=== PATIENT | male | born 1965 | race Caucasian/White ===

== ENCOUNTER 2017-08-12 09:19 | Day surgery (SDC) | payer BC ==
[~2017-08-12] VITALS: Ht 188 cm; Wt 90.7 kg
--- OUTSIDE RECORDS SUMMARY | 2017-08-12 09:23 | XMS REPORT | Encounter Summary ---
Author Author [facility] Organization [facility] Address Unknown Phone Unavailable Care Team Providers Care Lead Cytogenetic Technologist Name Role Phone PCP Unavailable Encounter Details Date Type Department Care Team Description 07/21/2017 Hospital [facility] Encounter Hospital Radiology [address] [place] [address] Social History Tobacco Use Types Packs/Day Years Used Date Never Assessed Sex Assigned at Date Recorded Not on file as of this encounter Plan of Treatment Not on fileas of this encounter Results * NM PET/CT EXTERNAL IMAGING (07/21/2017) Narrative This order has been auto finalized and does not contain a result. in this encounter Visit Diagnoses Diagnosis Diagnosis unknown Other unknown and unspecified cause of morbidity or mortality in this encounter
--- OUTSIDE RECORDS SUMMARY | 2017-08-12 09:23 | XMS REPORT | Encounter Summary ---
Author Author [facility] Organization [facility] Address Unknown Phone Unavailable Care Team Providers Care Investment Accounting Clerk Name Role Phone PCP Unavailable Reason for Visit * Reason Comments Navigation Assessment Encounter Details Date Type Department Care Team Description 07/17/2017 Telephone [facility] Jorge Alberto Levy MD Navigation Assessment Physicians - ENT [address] [place] [address] OFFICE BLDG [phone] [place] [address] Social History Tobacco Use Types Packs/Day Years Used Date Never Assessed Sex Assigned at Date Recorded Not on file as of this encounter Plan of Treatment Not on fileas of this encounter Visit Diagnoses Not on filein this encounter
--- OUTSIDE RECORDS SUMMARY | 2017-08-12 09:23 | XMS REPORT | Encounter Summary ---
Author Author [facility] Organization [facility] Address Unknown Phone Unavailable Care Team Providers Care Obiee Architect Name Role Phone PCP Unavailable Encounter Details Date Type Department Care Team Description 07/23/2017 Ancillary Rad Outpatient, Radiologist Diagnosis unknown Orders [address] [place], [place] [id number] Social History Tobacco Use Types Packs/Day Years Used Date Never Assessed Sex Assigned at Date Recorded Not on file as of this encounter Plan of Treatment Not on fileas of this encounter Results * NM PET/CT EXTERNAL IMAGING (07/21/2017) Narrative This order has been auto finalized and does not contain a result. * US MISC EXTERNAL IMAGING (07/10/2017 12:15 AM) Narrative This order has been auto finalized and does not contain a result. * CT NECK EXTERNAL IMAGING (07/10/2017) Narrative This order has been auto finalized and does not contain a result. in this encounter Visit Diagnoses Diagnosis Diagnosis unknown Other unknown and unspecified cause of morbidity or mortality in this encounter
--- OUTSIDE RECORDS SUMMARY | 2017-08-12 09:23 | XMS REPORT | Encounter Summary ---
Author Author [facility] Organization [facility] Address Unknown Phone Unavailable Care Team Providers Care Field Pipelines Supervisor Name Role Phone PCP Unavailable Reason for Visit * Reason Comments Provider Discussion About Patient * Consult, Test & Treat (Routine) Status Reason Specialty Diagnoses / Referred By Referred To Procedures Contact Contact Authorized Otolaryngology Diagnoses Jorge Alberto Levy NEW, Wayne BUTLER MD CWA [address] rocedures [place], [place] NEW PATIENT [address] Encounter Details Date Type Department Care Team Description 07/24/2017 Office Visit [facility] Jorge Alberto Levy MD Oropharynx cancer (HCC) Physicians - ENT [address] F[address] [place] [address] OFFICE BLDG [phone] [place] [address] Social History Tobacco Use Types Packs/Day Years Used Date Never Smoker Smokeless Tobacco: Never Used Alcohol Use Drinks/Week oz/Week Comments Yes Sex Assigned at Date Recorded Not on file as of this encounter Last Filed Vital Signs Vital Sign Reading Time Taken Blood Pressure 109/71 07/24/2017 8:55 AM CDT Pulse 76 07/24/2017 8:55 AM CDT Temperature - - Respiratory Rate - - Oxygen Saturation - - Inhaled Oxygen - - Concentration Weight 88.7 kg (195 lb 9.6 oz) 07/24/2017 8:55 AM CDT Height 188 cm (6' 2") 07/24/2017 8:55 AM CDT Body Mass Index 25.11 07/24/2017 8:55 AM CDT in this encounter Progress Notes * Jorge Alberto Levy MD - 07/24/2017 9:00 AM CDT Formatting of this note may be different from the original. Chief Complaint Patient presents with Provider Discussion About Patient History of Present Illness: Roman Starr is a 51 y.o. year old male evaluated on 07/24/2017, in the Otolaryngology-Head and Neck Surgery Clinic at the [facility]. The patient was referred by Dr. 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 describes felling a left neck lump few months ago. He went to his PCP which ordered some imaging to him. 06/17/17 US: IMPRESSION: Multiple lymph nodes are identified in the soft tissues of the neck. One of these corresponds with the palpable lump and it is located between the carotid bulb, internal carotid, external carotid arteries, and the internal jugular vein. Several of the lymph nodes demonstrated loss of normal architecture. The possibility of a significant process such as metastatic disease or lymphoma may be consdidered in the differential diagnosis. 07/10/17 CT Neck and Chest: IMPRESSION: Vtuw-ie-jhizgbor zmrp-iqcpxci-lhva- right ciervical mainly anterior chain lymphadenopathy. These nodes are in a precarious poaition, and would make a biopsy extremely challenging. 07/10/17 Surgical path: Left neck node: Metastatic squamous cell carcinoma, p16 POS 07/21/17 PET: IMPRESSION: Intensely FDG avid pharyngeal mass lesion involving bilateral tonsillar pillar extending to the vallecula, left-greater- than-right, with soft tissue prominence. Significant bilateral neck divina metastasis, fkmy-cfzhakb-dgox-right, with abnormal radiotracer uptake. Today he denies any pain or difficulty in swallowing. He denies any irritation in his oral cavity or any bleeding. He is a lifetime non smoker. He has a remote history of tonsillectomy when he was 2 years old. Past Medical/Surgical History He has no relevant medical history Past surgical history is noncontributory. Past Family/Social History Family history is noncontributory. He reports that he has never smoked. He has never used smokeless tobacco. He reports that he drinks alcohol. He reports that he does not use illicit drugs. Medications/Allergies/Immunizations His current medication(s) include: No current outpatient prescriptions on file. No current facility-administered medications for this visit. Allergies: Review of patient's allergies indicates no known allergies. Review of Systems Constitutional: Negative for fever, weight loss and weight gain. Skin: Negative for rash, itchiness, dryness HENT: Negative for ear pain, sore throat and hoarseness. Negative for difficulty swallowing. Cardiovascular: Negative for chest pain and dyspnea on exertion (Can climb up 2 floors). Respiratory: Is not experiencing shortness of breath. Gastrointestinal: Negative for nausea and vomiting. Neurological: Negative for headaches. Lymph/Heme: Negative for lymphadenopathy or easy bruising Musculoskeletal: Negative for joint or muscle pain Psychiatric: The patient is not nervous/anxious. All other systems are negative except for that listed in the HPI. PHYSICAL EXAM: Vital Signs: BP 109/71 (BP Source: Arm, Right, Patient Position: Sitting) | Pulse 76 | Ht 188 cm (74") | Wt 88.7 kg (195 lb 9.6 oz) | BMI 25.11 kg/m2 General: Well-developed, well-nourished Communication and Voice: Clear pitch and clarity Hearing: Hearing adequate for verbal communication bilaterally Inspection: Normocephalic and atraumatic without mass or lesion Palpation: Facial skeleton intact without bony stepoffs Parotid Glands: No mass or tenderness Facial Strength: Facial motility symmetric and full bilaterally Pinna: External ear intact and fully developed External canal: Canal is patent with intact skin Tympanic Membrane: Clear and mobile External nose: No scar or anatomic deformity Internal Nose: Septum intact and midline. No edema, polyp, or rhinorrhea. TMJ: No pain to palpation with full mobility Oral cavity, Lips, Teeth, and Gums: Mucosa and teeth intact and viable, No lesions, masses or ulcers Oropharynx: NO masses seen visually but on palpation there was irregularities at the tonsillar fossae and a mass was felt at the left inferior tonsil and tongue base. Nasopharynx: No mass or lesion with intact mucosa Hypopharynx: No masses or ulcerations, normal mucosa without pooling of secretions Larynx: Normal supraglottic and glottic structures without masses or ulcerations, normal vocal fold mobility Neck, bilateral cervical lymphadenopathy at level 2 most prominent aon the left side. Largest is about 2 cm in diameter. Thyroid: No mass or nodularity Eyes: No nystagmus with equal extraocular motion bilaterally Neuro/Psych/Balance: Patient oriented and appropriate in interaction; Appropriate mood and affect; Gait is intact with no imbalance; Cranial nerves I -XII are intact Respiratory effort: Equal inspiration and expiration without stridor Peripheral Vascular: Warm extremities with equal pulses Procedure: Flexible fiberoptic nasopharyngoscopy/laryngoscopy Indications: Need for detailed exam, hyperactive gag reflex, inadequate mirror visualization. Surgeon: Jorge Alberto Levy MD Procedure note/findings: After informed discussion of the risks, benefits, and alternatives after indications as noted above, a fiberoptic nasopharyngoscopy and laryngoscopy was recommended for above indications, and the patient consented to this. Nasal cavities were topically anesthetized and decongested with 4% lidocaine and Afrin solutions after which a flexible scope was easily advanced without difficulty into the left and right nasal cavities as well as into the nasopharynx. Nasal cavities were intact without gross mass or lesion. Nasopharynx, similarly, revealed no mass lesion or granularity. There was no ulceration. There was no gross asymmetry. Fossa of Rosenmueller was intact bilaterally. The eustachian tube orifices were intact bilaterally and patent. There was a mass seen at the tongue base L>R. Larynx and hypopharynx were examined. Larynx was intact with normal true vocal cord mobility bilaterally. No discrete masses or lesions in any location. Hypopharynx was clear without asymmetry. Airway was patent. The scope was then withdrawn and removed. He tolerated this well. IMPRESSION: My impression is that Mr. Starr has an oropharyngeal carcinoma. which I would tentatively stage as a [id number] P16 positive lesion based on on its size at tongue base and bilateral cervical lymph nodes. We discussed thoroughly his treatment options which include concomitant chemotherapy and radiotherapy which I think would give him the best oncological and functional outcomes versus surgery with robotic assistance. Mr. Starr seems to be in good understanding of his options and wants to proceed to have concomitant chemotherapy and radiotherapy. PLAN: After review of the various options including the risks, benefits and alternatives, Mr. Starr has opted to proceed with concomitant chemotherapy and radiotherapy.as part of his overall management which I believe is reasonable for his condition. Attending Physician Note I independently interviewed, examined and formulated the medical decision making for Mr. Starr. Details of my interview, examination findings, and medical decision-making confirmed the findings in the resident physician's documentation. I have personally amended the resident physician's documentation in bold where appropriate. We discussed treatment options including primary radiation therapy with or without chemotherapy and possible surgical salvage, primary surgery with post- operative adjuvant radiation with or without chemotherapy, and no treatment/ supportive care. I did not recommend no treatment because of the high likelihood of disease progression over time leading to significant morbidity. I recommended primary chemoradiation over surgery due to the more favorable cure versus toxicity profile in this circumstance. We did discuss that no treatment modality could offer a guarantee of cure and that all treatments have varying degrees of toxicity. TORS would leave large defect and functional impairment and would likely not prevent need for chemoradiation. Staff name: Jorge Alberto Levy MD Date: 07/24/2017 in this encounter Plan of Treatment Not on fileas of this encounter Visit Diagnoses Diagnosis Oropharynx cancer (HCC) Malignant neoplasm of oropharynx, unspecified site in this encounter
--- OUTSIDE RECORDS SUMMARY | 2017-08-12 09:23 | XMS REPORT | Encounter Summary ---
Author Author [facility] Organization [facility] Address Unknown Phone Unavailable Care Team Providers Care Foreclosure Home Inspector Name Role Phone PCP Unavailable Reason for Visit * Reason Comments Navigation Follow Up Encounter Details Date Type Department Care Team Description 08/11/2017 Telephone [facility] Claudio Alaniz MD Navigation Follow Up Physicians - ENT [address] [facility] [address] F[address] [facility] [place] [address] OFFICE BLDG [phone] [place] [address] Social History Tobacco Use Types Packs/Day Years Used Date Never Smoker Smokeless Tobacco: Never Used Alcohol Use Drinks/Week oz/Week Comments Yes Sex Assigned at Date Recorded Not on file as of this encounter Plan of Treatment Not on fileas of this encounter Visit Diagnoses Not on filein this encounter
--- OUTSIDE RECORDS SUMMARY | 2017-08-12 09:23 | XMS REPORT | Clinical Summary ---
Author Author [facility] Organization [facility] Address Unknown Phone Unavailable Care Team Providers Care Machine Cementer And Folder Name Role Phone PCP Unavailable Source Comments Some departments are not documenting in the electronic medical record. If you do not see the information that you expected, contact Release of Information in the Health Information Management department at [phone] for further assistance in locating additional records.[facility] Allergies No Known Allergies Current Medications No known medications Active Problems Problem Noted Date Oropharynx cancer (HCC) 07/24/2017 Encounters Date Type Specialty Care Team Description 08/11/2017 Telephone Otolaryngology Claudio Alaniz MD Navigation Follow Up 08/07/2017 Telephone Otolaryngology Jorge Alberto Levy MD Navigation Follow Up 08/06/2017 Telephone Otolaryngology Jorge Alberto Levy MD Navigation Follow Up 07/24/2017 Office Visit Otolaryngology Jorge Alberto Levy MD Oropharynx cancer (HCC) 07/23/2017 Ancillary Radiology Outpatient, Radiologist Diagnosis unknown Orders 07/21/2017 Hospital Radiology Encounter 07/17/2017 Telephone Otolaryngology Jorge Alberto Levy MD Navigation Assessment 07/10/2017 Hospital Radiology Encounter 07/10/2017 Hospital Radiology Encounter from Last 3 Months Social History Tobacco Use Types Packs/Day Years Used Date Never Smoker Smokeless Tobacco: Never Used Alcohol Use Drinks/Week oz/Week Comments Yes Sex Assigned at Date Recorded Not on file Last Filed Vital Signs Vital Sign Reading [...] Mass Index 25.11 07/24/2017 8:55 AM CDT Plan of Treatment Health Maintenance Due Date Last Done Comments HEPATITIS C SCREENING 1963 PHYSICAL (COMPREHENSIVE) 1970 EXAM PERTUSSIS VACCINE 1974 TETANUS VACCINE 1980 COLORECTAL CANCER 2013 SCREENING INFLUENZA VACCINE 08/30/2017 Results * NM PET/CT EXTERNAL IMAGING (07/21/2017) Narrative This order has been auto finalized and does not contain a result. * US MISC EXTERNAL IMAGING (07/10/2017 12:15 AM) Narrative This order has been auto finalized and does not contain a result. * CT NECK EXTERNAL IMAGING (07/10/2017) Narrative This order has been auto finalized and does not contain a result. from Last 3 Months
--- OUTSIDE RECORDS SUMMARY | 2017-08-12 09:23 | XMS REPORT | Encounter Summary ---
Author Author [facility] Organization [facility] Address Unknown Phone Unavailable Care Team Providers Care Corporate Administrative Assistant Name Role Phone PCP Unavailable Encounter Details Date Type Department Care Team Description 07/10/2017 Hospital [facility] Encounter Hospital Radiology [address] [facility] [address] [place] [address] Social History Tobacco Use Types Packs/Day Years Used Date Never Assessed Sex Assigned at Date Recorded Not on file as of this encounter Plan of Treatment Not on fileas of this encounter Results * CT NECK EXTERNAL IMAGING (07/10/2017) Narrative This order has been auto finalized and does not contain a result. in this encounter Visit Diagnoses Diagnosis Diagnosis unknown Other unknown and unspecified cause of morbidity or mortality in this encounter
--- OUTSIDE RECORDS SUMMARY | 2017-08-12 09:23 | XMS REPORT | Encounter Summary ---
Author Author [facility] Organization [facility] Address Unknown Phone Unavailable Care Team Providers Care Geomatics Professor Name Role Phone PCP Unavailable Encounter Details Date Type Department Care Team Description 07/10/2017 Hospital [facility] Encounter Hospital Radiology [address] [place] [address] Social History Tobacco Use Types Packs/Day Years Used Date Never Assessed Sex Assigned at Date Recorded Not on file as of this encounter Plan of Treatment Not on fileas of this encounter Results * [facility] EXTERNAL IMAGING (07/10/2017 12:15 AM) Narrative This order has been auto finalized and does not contain a result. in this encounter Visit Diagnoses Diagnosis Diagnosis unknown Other unknown and unspecified cause of morbidity or mortality in this encounter
--- OUTSIDE RECORDS SUMMARY | 2017-08-12 09:23 | XMS REPORT | Encounter Summary ---
Author Author [facility] Organization [facility] Address Unknown Phone Unavailable Care Team Providers Care Replacer Name Role Phone PCP Unavailable Reason for Visit * Reason Comments Navigation Follow Up Encounter Details Date Type Department Care Team Description 08/07/2017 Telephone [facility] Jorge Alberto Levy MD Navigation Follow Up Physicians - ENT [address] [facility] [facility] [place] [address] OFFICE BLDG [phone] [place] [address] Social History Tobacco Use Types Packs/Day Years Used Date Never Smoker Smokeless Tobacco: Never Used Alcohol Use Drinks/Week oz/Week Comments Yes Sex Assigned at Date Recorded Not on file as of this encounter Plan of Treatment Not on fileas of this encounter Visit Diagnoses Not on filein this encounter
--- OUTSIDE RECORDS SUMMARY | 2017-08-12 09:23 | XMS REPORT | Encounter Summary ---
Author Author [facility] Organization [facility] Address Unknown Phone Unavailable Care Team Providers Care Putty And Caulking Supervisor Name Role Phone PCP Unavailable Reason for Visit * Reason Comments Navigation Follow Up Encounter Details Date Type Department Care Team Description 08/06/2017 Telephone [facility] Jorge Alberto Levy MD Navigation Follow Up Physicians - ENT [address] [place] [address] OFFICE BLDG [phone] [place] [address] Social History Tobacco Use Types Packs/Day Years Used Date Never Smoker Smokeless Tobacco: Never Used Alcohol Use Drinks/Week oz/Week Comments Yes Sex Assigned at Date Recorded Not on file as of this encounter Plan of Treatment Not on fileas of this encounter Visit Diagnoses Not on filein this encounter
--- OUTSIDE RECORDS SUMMARY | 2017-08-12 09:23 | XMS REPORT ---
Author ANAND Bell [facility] Address [address] [facility] [address] [place], [place] [id number] Care Team Providers Care Transit Proof Machine Operator Name Role Phone ANAND HAILE PCP Unavailable ANAND HAILE PreferredProvider Unavailable Allergies and Adverse Reactions Name Reaction Notes NO KNOWN DRUG ALLERGIES Plan of Treatment Not available. Medications Active Name Start Date Estimated Completion Date SIG Comments acyclovir 800 mg oral tablet 12/02/2016 take 1 tablet by oral route 3 times a day [place]-Smoothe/FS Scalp Oil 0.01 % scalp oil 05/27/2017 05/22/2018 Apply 1 a small amount (0.01%) by topical route twice a day as directed for 30 days Celexa 20 mg oral tablet 05/27/2017 take 1 tablet (20 mg) by oral route once daily Nizoral 2 % topical shampoo 05/27/2017 12/09/2017 apply shampoo by topical route twice weekly for 4 weeks with at least 3 days between each shampooing cyclobenzaprine 10 mg oral tablet 05/27/2017 take 1 tablet (10 mg) by oral route 2 times per day Cialis 5 mg oral tablet 05/27/2017 take 1 tablet (5 mg) by oral route once daily at approximately the same time each day [place] 10-325 mg oral tablet 05/27/2017 take 1 tablet by oral route every 6 hours as needed for pain Name Start Date Expiration Date SIG Comments Medrol (Ray) 4 mg oral tablets,dose pack 08/16/2012 08/16/2012 take as directed Zithromax Z-Ray 250 mg oral tablet 08/16/2012 08/21/2012 take 2 tablets (500 mg) by oral route once daily for 1 day then 1 tablet (250 mg) by oral route once daily for 4 days cyclobenzaprine 10 mg oral tablet 08/26/2012 08/26/2012 TAKE 1 TABLET BY MOUTH THREE TIMES DAILY NEEDED FOR SPASM acyclovir 800 mg oral tablet 05/16/2013 06/15/2013 take 1 tablet by oral route 3 times a day Celexa 20 mg oral tablet 02/07/2014 05/08/2014 take 1 tablet (20 mg) by oral route once daily for 30 days Zithromax Z-Ray 250 mg oral tablet 11/22/2014 11/27/2014 take 2 tablets ( 500 mg) by oral route once daily for 1 day then 1 tablet (250 mg) by oral route once daily for 4 days Suphedrine 30 mg oral tablet 01/04/2016 01/04/2016 take 2 tablets by oral route every 4 hours prednisone 20 mg oral tablet 12/02/2016 12/10/2016 4x2 days 3x2 days 2x2 days 1x2 days cephalexin 500 mg oral capsule 12/29/2016 01/08/2017 take 1 capsule (500 mg) by oral route 4 times per day for 10 days Discontinued Name Start Date Discontinued Date SIG Comments Flexeril 10 mg oral tablet 09/17/2010 09/12/2015 take 1 tablet (10 mg) by oral route 3 times per day Vicodin 5-500 mg oral tablet 09/17/2010 09/12/2015 take 1 tablet by oral route every 6 hours as needed for pain Cortisporin-TC 3.3-3-10-0.5 mg/mL otic drops,suspension 08/24/2012 06/14/2017 instill in affected ear 4 drops by otic route 4 times a day Medrol (Ray) 4 mg oral tablets,dose pack 11/22/2014 09/12/2015 take as directed promethazine-codeine 6.25-10 mg/5 mL oral syrup 11/22/2014 09/12/2015 take 5 milliliters by oral route every 4 hours as needed, not to exceed 30 mL in 24 hours fluticasone 50 mcg/actuation nasal spray,suspension 01/04/2016 06/14/2017 inhale 1 spray (50 mcg) in each nostril by intranasal route 2 times per day Bactrim DS 800-160 mg oral tablet 12/02/2016 06/14/2017 take 1 tablet by oral route 2 times a day Problem List Description Status Onset Back Pain Active Herpes Simplex Of Lip, History Active Insomnia Active 02/08/2014 Scalp psoriasis Active 06/14/2017 Medication management Active 06/14/2017 Celiac disease Active 06/14/2017 Back spasm Active 06/14/2017 Vital Signs Date Time BP-Sys(mm[Hg] BP-Kiah(mm[Hg]) HR(bpm) RR(rpm) Temp WT HT HC BMI BSA BMI Percentile O2 Sat(%) 05/27/2017 11:09:00 AM 132 mmHg 88 mmHg 70 bpm 16 rpm 98 F 199.062 lbs 74 in 25.56 kg/m2 2.17 m2 98 % 12/29/2016 2:49:00 PM 118 mmHg 80 mmHg 88 bpm 16 rpm 97.9 F 209 lbs 74 in 26.8337 kg/m 2.2248 m 96 % 12/02/2016 9:03:00 AM 120 mmHg 84 mmHg 97 bpm 16 rpm 98 F 205 lbs 74 in 26.32 kg/m2 2.20 m2 97 % 01/04/2016 10:21:00 AM 120 mmHg 70 mmHg 68 bpm 18 rpm 98.2 F 202 lbs 74 in 25.935 kg/m 2.1872 m 98 % 11/07/2015 2:39:00 PM 110 mmHg 60 mmHg 94 bpm 18 rpm 98.4 F 206 lbs 74 in 26.45 kg/m2 2.21 m2 98 % 09/03/2015 10:29:00 AM 118 mmHg 70 mmHg 86 bpm 16 rpm 98 F 196 lbs 74 in 25.1647 kg/m 2.1545 m 99 % 02/07/2014 11:39:00 AM 122 mmHg 62 mmHg 94 bpm 16 rpm 98.3 F 203 lbs 73 in 26.78 kg/m2 2.18 m2 98 % 07/28/2013 7:53:00 AM 112 mmHg 72 mmHg 72 bpm 20 rpm 98 F 208 lbs 73 in 27.442 kg/m 2.2044 m 99 % 11/11/2012 8:27:00 AM 110 mmHg 60 mmHg 84 bpm 18 rpm 97.1 F 204 lbs 72 in 27.67 kg/m2 2.17 m2 98 % 08/24/2012 1:29:00 PM 118 mmHg 60 mmHg 114 bpm 20 rpm 97.8 F 200 lbs 74 in 25.6782 kg/m 2.1764 m 99 % Social History Name Description Comments Alcohol Use Tobacco Never smoker History of Procedures Date Ordered Description Order Status 09/03/2015 12:00 AM Decadron, Per 1 Mg [facility]# [address]-16 Reviewed 09/03/2015 12:00 AM Depo-Medrol, Per 80 Mg NDC#6209-8868-56 Reviewed 11/07/2015 12:00 AM Decadron, Per 1 Mg N[facility]# [address]-63 Reviewed 11/07/2015 12:00 AM Depo-Medrol, Per 80 Mg NDC#1142-2980-19 Reviewed 11/07/2015 12:00 AM Toradol 60 Mg ND#5306-4381-52 Reviewed 01/04/2016 12:00 AM Decadron, Per 1 Mg NDC# [address]-01 Reviewed 08/26/2012 12:00 AM ROUTINE VENIPUNCTURE Reviewed 08/26/2012 12:00 AM COMPLETE CBC W/AUTO DIFF WBC Reviewed 08/26/2012 12:00 AM COMPREHEN METABOLIC PANEL Reviewed 08/26/2012 12:00 AM LIPID PANEL Reviewed 08/26/2012 12:00 AM Prostate Cancer Screening Reviewed 08/26/2012 12:00 AM ASSAY THYROID STIM HORMONE Reviewed 11/11/2012 12:00 AM THER/PROPH/DIAG INJ SC/IM Reviewed 11/11/2012 12:00 AM Decadron, Per 1 Mg NDC# [address]-75 Reviewed 11/11/2012 12:00 AM Depo-Medrol, Per 80 Mg NDC#7429-2413-81 Reviewed 07/28/2013 12:00 AM THER/PROPH/DIAG INJ SC/IM Reviewed 07/28/2013 12:00 AM Decadron, Per 1 Mg NDC# [address]-01 Reviewed 07/28/2013 12:00 AM Depo-Medrol, Per 80 Mg NDC#0970-9032-14 Reviewed Results Summary Date and Description Results 08/26/2012 3:55 PM GLUCOSE 76.0 mg/dLSODIUM 140.0 mmol/LPOTASSIUM 3.80 mmol/ LCHLORIDE 105.0 mmol/LCO2 25.0 mmol/LBUN 17.0 mg/dLCREATININE 1.10 mg/dLSGOT/ AST 15.0 IU/LSGPT/ALT 19.0 IU/LALK PHOS 79.0 IU/LTOTAL PROTEIN 7.20 g/dLALBUMIN 4.10 g/dLTOTAL BILI 1.10 mg/dLCALCIUM 9.20 mg/dLAGE 46 GFR NonAA 71 GFR AA 86 eGFR 60 eGFR AA* 60 FREE T4 0.87 TSH 2.480 uIU/mLWBC 6.5 RBC 5.03 HGB 16.10 g/ dLHCT 45.50 %MCV 91.0 fLMCH 32.0 pgMCHC 35.40 g/dLRDW SD 42 RDW CV 13.0 %MPV 9.60 fLPLT 151 NRBC# 0.00 NRBC% 0.0 %NEUT 52.70 %%LYMP 34.50 %%MONO 10.10 %%EOS 2.20 %%BASO 0.50 %#NEUT 3.41 #LYMP 2.23 #MONO 0.65 #EOS 0.14 #BASO 0.03 MANUAL DIFF NOT IND TRIGLYCERIDES 82.0 mg/dLCHOLESTEROL 168.0 mg/dLHDL 61.0 mg/dLTOT CHOL/HDL 2.8 LDL (CALC) 91.0 mg/dLPSA TOTAL 1.260 ng/mL 02/09/2014 11:50 AM PSA TOTAL 0.960 ng/mLTESTOSTERONE 573.0 ng/dLT4 6.60 ug/dL History Of Immunizations Not available. History of Past Illness Name Date of Onset Comments Back Pain Herpes Simplex Of Lip, History Chest Pain, Atypical Celiac Disease Insomnia 02/08/2014 Scalp psoriasis 06/14/2017 Medication management 06/14/2017 Celiac disease 06/14/2017 Back spasm 06/14/2017 Otitis Externa, Acute - Right Aug 24 2012 1:30PM Weight Loss Aug 26 2012 12:30PM Fatigue Aug 26 2012 12:30PM Prostate screening Aug 26 2012 12:30PM Eustachian Tube Dysfunction Nov 11 2012 8:28AM Ear Pain Right Nov 11 2012 8:28AM Seasonal Allergies Jul 28 2013 3:45PM Depressive Disorder Feb 07 2014 11:40AM Insomnia Feb 07 2014 11:40AM Back Pain Feb 07 2014 11:40AM Celiac Disease Feb 07 2014 11:40AM Chest pain; other Feb 07 2014 11:40AM Eustachian Tube Dysfunction Sep 03 2015 10:29AM Seasonal Allergies Sep 03 2015 10:29AM Post-nasal drainage Sep 03 2015 10:29AM Ear pressure, right Sep 03 2015 10:29AM Bilateral low back pain without sciatica Nov 07 2015 2:39PM Severe Acute Muscle spasm of back Nov 07 2015 2:39PM Eustachian tube dysfunction, bilateral Jan 04 2016 10:21AM Moderate Acute Post-nasal drainage Jan 04 2016 10:21AM Upper respiratory tract infection, unspecified type Jan 04 2016 10:21AM Moderate Acute Sinus pressure Jan 04 2016 10:21AM Moderate Acute Ear pain, right Jan 04 2016 10:21AM Eustachian tube dysfunction, bilateral Dec 02 2016 9:03AM Moderate Acute Cough Dec 02 2016 9:03AM Moderate Acute Purulent postnasal drainage Dec 02 2016 9:03AM Moderate Acute Chest congestion Dec 02 2016 9:03AM Cellulitis of toe of left foot Dec 29 2016 2:50PM Moderate Acute Ingrown toenail Dec 29 2016 2:50PM Low back pain May 27 2017 11:10AM Other chronic pain May 27 2017 11:10AM Insomnia May 27 2017 11:10AM Moderate Chronic Scalp psoriasis Stable May 27 2017 11:10AM Medication management May 27 2017 11:10AM Chronic Celiac disease Stable May 27 2017 11:10AM Back spasm May 27 2017 11:10AM Payers Insurance Name Company Name Plan Name Plan Number Policy Number Policy Group Number Start Date [employer] [place] [id number] N/A [employer] [place] [id number] N/A History of Encounters Visit Date Visit Type Provider 05/27/2017 Office visit ANAND CHENEY 12/29/2016 Office visit ANAND CHENEY 12/02/2016 Office visit ANAND CHENEY 01/04/2016 Office visit ANAND CHENEY 11/07/2015 Office visit ANAND CHENEY 09/03/2015 Office visit ANAND CHENEY 02/07/2014 Office visit ANAND CHENEY 07/28/2013 Office visit ANAND CHENEY 11/11/2012 Office visit ANAND CHENEY 08/26/2012 Office visit ANAND CHENEY 08/24/2012 Office visit ANAND CHENEY
--- OUTSIDE RECORDS SUMMARY | 2017-08-12 09:24 | XMS REPORT ---
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 Medications Active Name Start Date Estimated Completion Date SIG Comments Cortisporin-TC 3.3-3-10-0.5 mg/mL otic drops,suspension 08/24/2012 instill in affected ear 4 drops by otic route 4 times a day [place]-Smoothe/FS Scalp Oil 0.01 % scalp oil 09/12/2015 09/06/2016 Apply 1 a small amount (0.01%) by topical route twice a day as directed for 30 days [place] 10-325 mg oral tablet 11/11/2015 take 1 tablet by oral route every 6 hours as needed for pain prednisone 20 mg oral tablet 01/04/2016 01/12/2016 4x2 days 3x2 days 2x2 days 1x2 days Suphedrine 30 mg oral tablet 01/04/2016 01/04/2016 take 2 tablets by oral route every 4 hours fluticasone 50 mcg/actuation nasal spray,suspension 01/04/2016 inhale 1 spray (50 mcg) in each nostril by intranasal route 2 times per day Name Start Date Expiration Date SIG Comments [...] oral route once daily for 4 days Discontinued Name Start Date Discontinued Date SIG Comments Flexeril 10 mg oral tablet 09/17/2010 09/12/2015 take 1 tablet (10 mg) by oral route 3 times per day Vicodin 5-500 mg oral tablet 09/17/2010 09/12/2015 take 1 tablet by oral route every 6 hours as needed for pain Medrol (Ray) 4 mg oral tablets,dose pack 11/22/2014 09/12/2015 take as directed promethazine-codeine 6.25-10 mg/5 mL oral syrup 11/22/2014 09/12/2015 take 5 milliliters by oral route every 4 hours as needed, not to exceed 30 mL in 24 hours Problem List Description Status Onset Back pain Active Herpes Simplex Of Lip, History Active Insomnia Active 02/08/2014 Vital Signs Date Time BP-Sys(mm[Hg] BP-Kiah(mm[Hg]) HR(bpm) RR(rpm) Temp WT HT HC BMI BSA BMI Percentile O2 Sat(%) 01/04/2016 10:21:00 AM 120 mmHg 70 mmHg 68 bpm 18 rpm 98.2 F 202 lbs 74 in 25.93 kg/m2 2.19 m2 98 % 11/07/2015 2:39:00 PM 110 mmHg 60 mmHg 94 bpm 18 rpm 98.4 F 206 lbs 74 in 26.4486 kg/m 2.2088 m 98 % 09/03/2015 10:29:00 AM 118 mmHg 70 mmHg 86 bpm 16 rpm 98 F 196 lbs 74 in 25.16 kg/m2 2.15 m2 99 % 02/07/2014 11:39:00 AM 122 mmHg 62 mmHg 94 bpm 16 rpm 98.3 F 203 lbs 73 in 26.7823 kg/m 2.1778 m 98 % 07/28/2013 7:53:00 AM 112 mmHg 72 mmHg 72 bpm 20 rpm 98 F 208 lbs 73 in 27.44 kg/m2 2.20 m2 99 % 11/11/2012 8:27:00 AM 110 mmHg 60 mmHg 84 bpm 18 rpm 97.1 F 204 lbs 72 in 27.6671 kg/m 2.1681 m 98 % 08/24/2012 1:29:00 PM 118 mmHg 60 mmHg 114 bpm 20 rpm 97.8 F 200 lbs 74 in 25.68 kg/m2 2.18 m2 99 % Social History Name Description Comments Alcohol Use Tobacco Never smoker History of Procedures Date Ordered Description Order Status 09/03/2015 12:00 AM Decadron, Per 1 Mg N[facility]# [address]-34 Reviewed 09/03/2015 12:00 AM Depo-Medrol, Per 80 Mg NDC#5689-7435-80 Reviewed 11/07/2015 12:00 AM Decadron, Per 1 Mg N[facility]# [address]-13 Reviewed 11/07/2015 12:00 AM Depo-Medrol, Per 80 Mg NDC#1949-[address]-40 Reviewed 11/07/2015 12:00 AM Toradol 60 Mg NDC#1683-6837-96 Reviewed 08/26/2012 12:00 AM ROUTINE VENIPUNCTURE Reviewed 08/26/2012 12:00 AM COMPLETE CBC W/AUTO DIFF WBC Reviewed 08/26/2012 12:00 AM COMPREHEN METABOLIC PANEL Reviewed 08/26/2012 12:00 AM LIPID PANEL Reviewed 08/26/2012 12:00 AM Prostate Cancer Screening Reviewed 08/26/2012 12:00 AM ASSAY THYROID STIM HORMONE Reviewed 11/11/2012 12:00 AM THER/PROPH/DIAG INJ SC/IM Reviewed 11/11/2012 12:00 AM Decadron, Per 1 Mg [facility]# [address]-96 Reviewed 11/11/2012 12:00 AM Depo-Medrol, Per 80 Mg NDC#0556-4516-22 Reviewed 07/28/2013 12:00 AM THER/PROPH/DIAG INJ SC/IM Reviewed 07/28/2013 12:00 AM Decadron, Per 1 Mg N[facility]# [address]-57 Reviewed 07/28/2013 12:00 AM Depo-Medrol, Per 80 Mg NDC#9068-4810-56 Reviewed Results Summary Data and Description Results 08/26/2012 3:55 PM GLUCOSE 76.0 mg/dLSODIUM 140.0 mmol/LPOTASSIUM 3.80 mmol/ LCHLORIDE 105.0 mmol/LCO2 25.0 mmol/LBUN 17.0 mg/dLCREATININE 1.10 mg/dLSGOT/ AST 15.0 IU/LSGPT/ALT 19.0 IU/LALK PHOS 79.0 IU/LTOTAL PROTEIN 7.20 g/dLALBUMIN 4.10 g/dLTOTAL BILI 1.10 mg/dLCALCIUM 9.20 mg/dLeGFR 60 TSH 2.480 uIU/mLWBC 6.5 RBC 5.03 HGB 16.10 g/dLHCT 45.50 %MCV 91.0 fLMCH 32.0 pgMCHC 35.40 g/dLRDW CV 13.0 %MPV 9.60 fLPLT 151 %NEUT 52.70 %%LYMP 34.50 %%MONO 10.10 %%EOS 2.20 %% BASO 0.50 %#NEUT 3.41 #LYMP 2.23 #MONO 0.65 #EOS 0.14 #BASO 0.03 TRIGLYCERIDES 82.0 mg/dLCHOLESTEROL 168.0 mg/dLHDL 61.0 mg/dLLDL (CALC) 91.0 mg/dLPSA TOTAL 1.260 ng/mL 02/09/2014 11:50 AM PSA TOTAL 0.960 ng/mLTESTOSTERONE 573.0 ng/dLT4 6.60 ug/dL History Of Immunizations Not available. History of Past Illness Name Date of Onset Comments Back pain Herpes Simplex Of Lip, History Chest Pain, Atypical Celiac Disease Insomnia 02/08/2014 Otitis Externa, Acute - Right Aug 24 [...] 07 2015 2:39PM Eustachian tube dysfunction, bilateral b 2015 10:21AM Moderate Acute Post-nasal drainage b 2015 10:21AM Upper respiratory tract infection, unspecified type b 2015 10:21AM Moderate Acute Sinus pressure Jan 04 2016 10:21AM Moderate Acute Ear pain, right b 2015 10:21AM Payers Insurance Name Company Name Plan Name Plan Number Policy Number Policy Group Number Start Date BCBS [facility] [id number] N/A BCBS [employer] [facility] [id number] N/A History of Encounters Visit Date Visit Type Provider 01/04/2016 Office visit ANAND CHENEY 11/07/2015 Office visit ANAND CHENEY 09/03/2015 Office visit ANAND CHENEY 02/07/2014 Office visit ANAND CHENEY 07/28/2013 Office visit ANAND CHENEY 11/11/2012 Office visit ANAND CHENEY 08/26/2012 Office visit ANAND CHENEY 08/24/2012 Office visit ANAND CHENEY
--- OUTSIDE RECORDS SUMMARY | 2017-08-12 09:24 | XMS REPORT ---
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 Medications Active Name Start Date Estimated Completion Date SIG Comments Cortisporin-TC 3.3-3-10-0.5 mg/mL otic drops,suspension 08/24/2012 instill in affected ear 4 drops by otic route 4 times a day [place] 10-325 mg oral tablet 11/11/2015 take 1 tablet by oral route every 6 hours as needed for pain fluticasone 50 mcg/actuation nasal spray,suspension 01/04/2016 inhale 1 spray (50 mcg) in each nostril by intranasal route 2 times per day acyclovir 800 mg oral tablet 12/02/2016 take 1 tablet by oral route 3 times a day Bactrim DS 800-160 mg oral tablet 12/02/2016 take 1 tablet by oral route 2 times a day [place]-Smoothe/FS Scalp Oil 0.01 % scalp oil 12/02/2016 11/27/2017 Apply 1 a small amount (0.01%) by topical route twice a day as directed for 30 days cephalexin 500 mg oral capsule 12/29/2016 01/08/2017 take 1 capsule (500 mg) by oral route 4 times per day for 10 days Name Start Date Expiration Date SIG Comments Medrol (Rya) 4 mg oral tablets,dose pack 08/16/2012 08/16/2012 [...] days 3x2 days 2x2 days 1x2 days Discontinued Name Start Date Discontinued Date [...] HC BMI BSA BMI Percentile O2 Sat(%) 12/29/2016 2:49:00 PM 118 mmHg 80 mmHg 88 bpm 16 rpm 97.9 F 209 lbs 74 in 26.83 kg/m2 2.22 m2 96 % 12/02/2016 9:03:00 AM 120 mmHg 84 mmHg 97 bpm 16 rpm 98 F 205 lbs 74 in 26.3202 kg/m 2.2034 m 97 % 01/04/2016 10:21:00 AM 120 mmHg [...] 09/03/2015 12:00 AM Decadron, Per 1 Mg [facility]# [address]-65 Reviewed 09/03/2015 12:00 AM Depo-Medrol, Per 80 Mg [facility]#0352-7145-11 Reviewed 11/07/2015 12:00 AM Decadron, Per 1 Mg [facility]# [address]-48 Reviewed 11/07/2015 12:00 AM Depo-Medrol, Per 80 Mg [facility]#8104-1487-12 Reviewed 11/07/2015 12:00 AM Toradol 60 Mg [facility]#8322-7235-98 Reviewed 01/04/2016 12:00 AM Decadron, Per 1 Mg [facility]# [address]-90 Reviewed 08/26/2012 12:00 AM ROUTINE VENIPUNCTURE Reviewed 08/26/2012 12:00 AM COMPLETE CBC W/AUTO DIFF WBC Reviewed 08/26/2012 12:00 AM COMPREHEN METABOLIC PANEL Reviewed 08/26/2012 12:00 AM LIPID PANEL Reviewed 08/26/2012 12:00 AM Prostate Cancer Screening Reviewed 08/26/2012 12:00 AM ASSAY THYROID STIM HORMONE Reviewed 11/11/2012 12:00 AM THER/PROPH/DIAG INJ SC/IM Reviewed 11/11/2012 12:00 AM Decadron, Per 1 Mg [facility]# [address]-58 Reviewed 11/11/2012 12:00 AM Depo-Medrol, Per 80 Mg ND#7659-9592-92 Reviewed 07/28/2013 12:00 AM THER/PROPH/DIAG INJ SC/IM Reviewed 07/28/2013 12:00 AM Decadron, Per 1 Mg [facility]# [address]-86 Reviewed 07/28/2013 12:00 AM Depo-Medrol, Per 80 Mg [facility]#7714-1949-23 Reviewed Results Summary Data and Description Results [...] b 2015 10:21AM Moderate Acute Post-nasal drainage Jan 04 [...] Acute Ingrown toenail Dec 29 2016 2:50PM Payers Insurance Name Company Name Plan Name Plan Number Policy Number Policy Group Number [id number] [id number] N/A History of Encounters Visit Date Visit Type Provider 12/29/2016 Office visit ANAND CHENEY 12/02/2016 Office visit ANAND CEHNEY 01/04/2016 Office visit ANAND HAILE PA 11/07/2015 Office visit ANAND HAILE PA 09/03/2015 Office visit ANAND HAILE PA 02/07/2014 Office visit ANAND HAILE PA 07/28/2013 Office visit ANAND HAILE PA 11/11/2012 Office visit ANAND HAILE PA 08/26/2012 Office visit ANAND HAILE PA 08/24/2012 Office visit ANAND HAILE PA
--- OUTSIDE RECORDS SUMMARY | 2017-08-12 09:24 | XMS REPORT ---
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 Medications Active Name Start Date Estimated Completion Date SIG Comments Cortisporin-TC 3.3-3-10-0.5 mg/mL otic drops,suspension 08/24/2012 instill in affected ear 4 drops by otic route 4 times a day [place]-Smoothe/FS Scalp Oil 0.01 % topical oil 09/12/2015 09/06/2016 Apply 1 a small amount (0.01%) by topical route twice a day as directed for 30 days Name Start Date Expiration Date SIG [...] HC BMI BSA BMI Percentile O2 Sat(%) 09/03/2015 10:29:00 AM 118 mmHg 70 mmHg [...] of Procedures Date Ordered Description Order Status 08/26/2012 12:00 AM ROUTINE VENIPUNCTURE Reviewed 08/26/2012 12:00 AM COMPLETE CBC W/AUTO DIFF WBC Reviewed 08/26/2012 12:00 AM COMPREHEN METABOLIC PANEL Reviewed 08/26/2012 12:00 AM LIPID PANEL Reviewed 08/26/2012 12:00 AM Prostate Cancer Screening Reviewed 08/26/2012 12:00 AM ASSAY THYROID STIM HORMONE Reviewed 11/11/2012 12:00 AM THER/PROPH/DIAG INJ SC/IM Reviewed 11/11/2012 12:00 AM Decadron, Per 1 Mg [facility]# [address]-82 Reviewed 11/11/2012 12:00 AM Depo-Medrol, Per 80 Mg ND#3609-9713-42 Reviewed 07/28/2013 12:00 AM THER/PROPH/DIAG INJ SC/IM Reviewed 07/28/2013 12:00 AM Decadron, Per 1 Mg [facility]# [address]-64 Reviewed 07/28/2013 12:00 AM Depo-Medrol, Per 80 Mg [facility]#3449-4852-82 Reviewed Results Summary Data and Description Results [...] Ear pressure, right Sep 03 2015 10:29AM Payers Insurance Name Company Name Plan Name Plan Number Policy Number Policy Group Number Start Date [facility]bs [facility] [id number] N/A [employer] [facility] [id number] N/A History of Encounters Visit Date Visit Type Provider 09/03/2015 Office visit ANAND CHENEY 02/07/2014 Office visit ANAND CHENEY 07/28/2013 Office visit ANAND CHENEY 11/11/2012 Office visit ANAND CHENEY 08/26/2012 Office visit ANAND CHENEY 08/24/2012 Office visit ANAND CHENEY
--- OUTSIDE RECORDS SUMMARY | 2017-08-12 09:25 | XMS REPORT ---
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 Medications Active Name Start Date Estimated Completion Date SIG Comments Cortisporin-TC 3.3-3-10-0.5 mg/mL otic drops,suspension 08/24/2012 instill in affected ear 4 drops by otic route 4 times a day [place] 10-325 mg oral tablet 11/11/2015 take 1 [...] by oral route 2 times a day prednisone 20 mg oral tablet 12/02/2016 12/10/2016 4x2 days 3x2 days 2x2 days 1x2 days [place]-Smoothe/FS Scalp Oil 0.01 % scalp oil 12/02/2016 [...] tablets by oral route every 4 hours Discontinued Name Start Date Discontinued Date SIG [...] HC BMI BSA BMI Percentile O2 Sat(%) 12/02/2016 9:03:00 AM 120 mmHg 84 mmHg [...] 12:00 AM Decadron, Per 1 Mg NDC# [address]-29 Reviewed 09/03/2015 12:00 AM Depo-Medrol, Per 80 Mg ND#8338-5157-98 Reviewed 11/07/2015 12:00 AM Decadron, Per 1 Mg NDC# [address]-56 Reviewed 11/07/2015 12:00 AM Depo-Medrol, Per 80 Mg NDC#3721-4157-16 Reviewed 11/07/2015 12:00 AM Toradol 60 Mg ND#8087-4687-48 Reviewed 01/04/2016 12:00 AM Decadron, Per 1 Mg ND# [address]-18 Reviewed 08/26/2012 12:00 AM ROUTINE VENIPUNCTURE Reviewed 08/26/2012 12:00 AM COMPLETE CBC W/AUTO DIFF WBC Reviewed 08/26/2012 12:00 AM COMPREHEN METABOLIC PANEL Reviewed 08/26/2012 12:00 AM LIPID PANEL Reviewed 08/26/2012 12:00 AM Prostate Cancer Screening Reviewed 08/26/2012 12:00 AM ASSAY THYROID STIM HORMONE Reviewed 11/11/2012 12:00 AM THER/PROPH/DIAG INJ SC/IM Reviewed 11/11/2012 12:00 AM Decadron, Per 1 Mg NDC# [address]-62 Reviewed 11/11/2012 12:00 AM Depo-Medrol, Per 80 Mg NDC#4490-4822-83 Reviewed 07/28/2013 12:00 AM THER/PROPH/DIAG INJ SC/IM Reviewed 07/28/2013 12:00 AM Decadron, Per 1 Mg [facility]# [address]-44 Reviewed 07/28/2013 12:00 AM Depo-Medrol, Per 80 Mg [facility]#7112-0725-65 Reviewed Results Summary Data and Description Results [...] 07 2015 2:39PM Eustachian tube dysfunction, bilateral Feb 2015 10:21AM Moderate Acute Post-nasal drainage Feb 2015 10:21AM Upper respiratory tract infection, unspecified type Feb 2015 10:21AM Moderate Acute Sinus pressure Feb 2015 10:21AM Moderate Acute Ear pain, right Feb 2015 10:21AM Eustachian tube dysfunction, bilateral Dec 02 2016 9:03AM Moderate Acute Cough Dec 02 2016 9:03AM Moderate Acute Purulent postnasal drainage Dec 02 2016 9:03AM Moderate Acute Chest congestion Dec 02 2016 9:03AM Payers Insurance Name Company Name Plan Name Plan Number Policy Number Policy Group Number [id number] N/A [facility] [id number] N/A History of Encounters Visit Date Visit Type Provider 12/02/2016 Office visit ANAND CHENEY 01/04/2016 Office visit ANAND CHENEY 11/07/2015 Office visit ANAND CHENEY 09/03/2015 Office visit ANAND CHENEY 02/07/2014 Office visit ANAND CHENEY 07/28/2013 Office visit ANAND CHENEY 11/11/2012 Office visit ANAND CHENEY 08/26/2012 Office visit ANAND CHENEY 08/24/2012 Office visit ANAND CHENEY
--- OUTSIDE RECORDS SUMMARY | 2017-08-12 09:25 | XMS REPORT ---
Author Author ANAND HAILE [facility] Address [address] [place], [place] [id number] Care Team Providers Care Lead Technical Architect Name Role Phone ANAND HAILE PCP Unavailable Allergies and Adverse Reactions Name Reaction Notes NO KNOWN DRUG ALLERGIES Plan of Treatment Not available. Medications Active Name Start Date Estimated Completion Date SIG Comments Cortisporin-TC 3.3-3-10-0.5 mg/mL otic drops,suspension 08/24/2012 instill in affected ear 4 drops by otic route 4 times a day [place]-Smoothe/FS Scalp Oil 0.01 % topical oil 09/12/2015 09/06/2016 Apply 1 a small amount (0.01%) by topical route twice a day as directed for 30 days [place] 10-325 mg oral tablet 11/11/2015 take 1 [...] HC BMI BSA BMI Percentile O2 Sat(%) 11/07/2015 2:39:00 PM 110 mmHg 60 mmHg [...] 09/03/2015 12:00 AM Decadron, Per 1 Mg [facility]# [address]-02 Reviewed 09/03/2015 12:00 AM Depo-Medrol, Per 80 Mg NDC#4898-5692-66 Reviewed 08/26/2012 12:00 AM ROUTINE VENIPUNCTURE Reviewed 08/26/2012 12:00 AM COMPLETE CBC W/AUTO DIFF WBC Reviewed 08/26/2012 12:00 AM COMPREHEN METABOLIC PANEL Reviewed 08/26/2012 12:00 AM LIPID PANEL Reviewed 08/26/2012 12:00 AM Prostate Cancer Screening Reviewed 08/26/2012 12:00 AM ASSAY THYROID STIM HORMONE Reviewed 11/11/2012 12:00 AM THER/PROPH/DIAG INJ SC/IM Reviewed 11/11/2012 12:00 AM Decadron, Per 1 Mg NDC# [address]-61 Reviewed 11/11/2012 12:00 AM Depo-Medrol, Per 80 Mg NDC#1383-6201-57 Reviewed 07/28/2013 12:00 AM THER/PROPH/DIAG INJ SC/IM Reviewed 07/28/2013 12:00 AM Decadron, Per 1 Mg NDC# [address]-91 Reviewed 07/28/2013 12:00 AM Depo-Medrol, Per 80 Mg NDC#8203-0405-41 Reviewed Results Summary Data and Description Results [...] spasm of back Nov 07 2015 2:39PM Payers Insurance Name Company Name Plan Name Plan Number Policy Number Policy Group Number Start Date [facility] [id number] N/A [facility] [id number] N/A History of Encounters Visit Date Visit Type Provider 11/07/2015 Office visit ANAND CHENEY 09/03/2015 Office visit ANAND CHENEY 02/07/2014 Office visit ANAND CHENEY 07/28/2013 Office visit ANAND CHENEY 11/11/2012 Office visit ANAND CHENEY 08/26/2012 Office visit ANAND CHENEY 08/24/2012 Office visit ANAND CHENEY
[2017-08-12] MEDS ORDERED: NS IV 1000 ML 1,000 ML IV STA (09:26)
[2017-08-12] MEDS ORDERED: LIDOCAINE JELLY 2% (XYLOCAINE) 5 ML TUBE MM PRN (09:30)
[2017-08-12] MEDS ORDERED: HURRICAINE EXT TUBE (BENZOCAINE) XX PRN (09:30)
[2017-08-12 09:39] VITALS: BP 121/77
[2017-08-12] MEDS ORDERED: PROPOFOL INJECTION 50 ML IV ONE (10:21)
[2017-08-12] MEDS ORDERED: MIDAZOLAM 5 MG/5 ML (VERSED) VIAL ONE (10:22)
--- NOTE | 2017-08-12 10:32 | Progress Note-Pre Operative ---
Pre-Operative Progress Note H&P Reviewed The H&P was reviewed, patient examined and no changes noted. Date Seen by Provider: Aug 12, 2017 Time Seen by Provider: 10:30 Date H&P Reviewed: Aug 12, 2017 Time H&P Reviewed: :30 Pre-Operative Diagnosis: oropharygeal squamous cell cancer SANAZ MAX MD Aug 12, 2017 10:32 am
[2017-08-12] MEDS ORDERED: morphine INJ 10 MG/ML 1ML (SYR OR VIAL) IV PRN (10:45)
[2017-08-12] MEDS ORDERED: ONDANSETRON 4 MG/2 ML (SDV) Z0FRAN IV PRN (10:45)
[2017-08-12] MEDS ORDERED: ACETAMINOPHEN 325 MG TABLET/CAPLET (TYLENOL) PO PRN (10:45)
[2017-08-12] MEDS ORDERED: HYDROcodone/APAP 5 MG/325 MG (LORTAB) TAB PO PRN (10:45)
[2017-08-12] MEDS ORDERED: proPOfol 200 MG/20 ML (DIPRIVAN) VIAL IV ONE (10:55)
[2017-08-12] MEDS ORDERED: HURRICAINE EXT TUBE (BENZOCAINE) ONE (11:15)
[2017-08-12 11:30] VITALS: BP 109/64
--- NOTE | 2017-08-12 11:30 | Progress Note-Post Operative ---
Post-Operative Progess Note Surgeon (s)/Purchase Order Checker (s) Surgeon SANAZ MAX MD Purchase Order Checker: none Pre-Operative Diagnosis oropharygeal squamous cell cancer Post-Operative Diagnosis same Procedure & Operative Findings Date of Procedure 08/12/17 Procedure Performed/Findings EGD with PEG Anesthesia Type MAC with local Estimated Blood Loss Estimated blood loss (mL): minimal Specimens/Packing Specimens Removed none SANAZ MAX MD Aug 12, 2017 11:30 am
--- NOTE | 2017-08-12 11:32 | Discharge Inst-Surgical ---
D/C Lap Instructions-WINTER Follow Up PRN Activity as tolerated No driving for 24 hours Flush with tap water(60ml) weekly and after use. Drain sponge daily and PRN. Avoid Alcohol, Caffeine, Spicy [place] and Acid foods. Drink 64 fluid oz or more of fluids per day. Symptoms to Report: Fever over 101 degree F, Nausea/Vomiting If any problems/questions: Contact your physician or go to Emergency Room SANAZ MAX MD Aug 12, 2017 11:32 am
[2017-08-12 12:00] VITALS: BP 104/69
[2017-08-12 12:10] VITALS: BP 104/69
--- NOTE | 2017-08-12 15:45 | OPERATIVE REPORT ---
DATE OF SERVICE: 08/12/2017 ATTENDING AND PRIMARY CARE PHYSICIAN: NONI Avila. 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 POSTOPERATIVE DIAGNOSIS: Oropharyngeal squamous cell carcinoma. PROCEDURE: EGD and percutaneous gastrostomy tube placement. SURGEON: Dr. Max. ANESTHESIA: Monitored anesthesia care. ESTIMATED BLOOD LOSS: Minimal. FINDINGS: Lesion noted at the base of the tongue, reflux esophagitis class B. No hiatal hernia. Mild gastritis. No distal obstructions. DISPOSITION: The patient tolerated the procedure well. INDICATIONS: The patient is a 51-year-old male referred over to us for a percutaneous gastrostomy tube. Approximately 4 months ago, he noticed a lump of his neck and it was seen by his ENT in [place]. A CT scan was performed, which did show lymphadenopathy. He underwent an ultrasound guided biopsy, which was consistent with metastatic squamous cell cancer. He then underwent a workup to find the primary including a nasopharyngoscopy, which did show mass at bilateral tonsillar plate. He also underwent a PET scan, which was consistent with this area as well as the lymph nodes. 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 He has opted for a combination chemotherapy and radiation and will need a percutaneous gastrostomy tube to maintain adequate liquid and nutritional intake as well as possible medications. DESCRIPTION OF PROCEDURE: The patient was brought to the endoscopy suite, laid in the left lateral decubitus position. After adequate IV pain and sedative medications and monitored anesthesia care administered by anesthesia, the mouthpiece was applied. Endoscope was placed in the mouth, visualizing the pharynx and hypopharyngeal region. Vocal cords, epiglottis and vallecula identified. At the base of the tongue, a lesion was identified. The endoscope was then gently intubated at the esophageal opening and esophagus insufflated. The endoscope was then advanced to the first, second and third portion of esophagus. At the level of the GE junction, a reflux esophagitis class B identified. There were no ulcers or strictures identified in this region. The endoscope was then easily advanced in the stomach. The endoscope retroflexed visualizing no significant hiatal hernia. A mild gastritis was noted. There were no formal ulcers, polyps or any neoplasms identified. The endoscope was then advanced to the pylorus and the first and second portion of the duodenum, which was normal with no distal obstructions. We then proceeded with placement of a percutaneous gastrostomy tube. The abdomen was prepped and draped in standard surgical fashion. 1% lidocaine was used to anesthetize the skin, subcutaneous and fascial layers as well as the peritoneal lining and stomach. The anesthetizing needle was identified going into the stomach through the endoscope. A vertical skin incision was made using an 11 blade and the cannulated needle placed under direct visualization. The wire was passed through the cannulated needle and looped through the endoscope and pulled through the mouth. The gastrostomy tube was placed onto the wire. The skin incision was slightly enlarged and the gastrostomy pulled through. The endoscope was placed back into the esophagus and stomach visualizing the end of the gastrostomy tube by the anterior stomach wall. Good hemostasis was observed. The rubber bolster was then placed to the external tube and firmly abutting the skin causing apposition of the abdominal wall layers. Bacitracin ointment followed by gauze sponges were applied over the skin. The tube was then cut down to size and a rubber bolster placed on the end. The patient tolerated the procedure well. The gastrostomy tube may be accessed and used at any time. We will recommend flushing with 60 mL of water on a weekly basis as well as drain sponges daily as well as p.r.n. Job ID: [id number] DocumentID: [id number] Dictated Date: 08/12/2017 11:29:05 Athletic Shoe Designer Date: 08/12/2017 15:20:55 Dictated By: SANAZ MAX MD [facility]
== END 2017-08-12 12:10 | disposition home or self-care (01) ==
LOC: SDC 09:19
PROVIDERS: ATTEND Surgery
DX: C02.9 Malignant neoplasm of tongue, unspecified (principal); K21.0 Gastro-esophageal reflux disease with esophagitis; K29.60 Other gastritis without bleeding

== ENCOUNTER 2017-08-28 13:55 | Outpatient (RCR) | payer BC ==
[2017-08-04 14:47] LABS: BASOPHILS % (AUTO) 1 % (0-10); EOSINOPHILS # (AUTO) 0.1 10^3/uL (0.0-0.3); EOSINOPHILS % (AUTO) 2 % (0-10); LYMPHOCYTES # (AUTO) 1.4 X 10^3 (1.0-4.0); LYMPHOCYTES % (AUTO) 33 % (12-44); MEAN CORPUSCULAR HEMOGLOBIN 32 PG (25-34); MEAN CORPUSCULAR HGB CONC 35 G/DL (32-36); MEAN CORPUSCULAR VOLUME 89 FL (80-99); MONOCYTES # (AUTO) 0.4 X 10^3 (0.0-1.0); MONOCYTES % (AUTO) 11 % (0-12); NEUTROPHILS # (AUTO) 2.3 X 10^3 (1.8-7.8); NEUTROPHILS % (AUTO) 54 % (42-75); PLATELET COUNT 140 10^3/uL (130-400); RED BLOOD COUNT 4.26 10^6/uL (4.35-5.85); RED CELL DISTRIBUTION WIDTH 12.1 % (10.0-14.5); WHITE BLOOD COUNT 4.2 10^3/uL (4.3-11.0)
[2017-08-04 15:05] LABS: ALANINE AMINOTRANSFERASE 16 U/L (0-55); ALBUMIN 3.9 GM/DL (3.2-4.5); ANION GAP 8 MMOL/L (5-14); ASPARTATE AMINO TRANSFERASE 19 U/L (5-34); BILIRUBIN,TOTAL 0.5 MG/DL (0.1-1.0); BLOOD UREA NITROGEN 18 MG/DL (7-18); BUN/CREATININE RATIO 15; CALCIUM 8.7 MG/DL (8.5-10.1); CARBON DIOXIDE 22 MMOL/L (21-32); CHLORIDE 110 MMOL/L (98-107); CREATININE SERUM 1.24 MG/DL (0.60-1.30); GFR ESTIMATED > 60; GLUCOSE 93 MG/DL (70-105); POTASSIUM 3.9 MMOL/L (3.6-5.0); SODIUM 140 MMOL/L (135-145); TOTAL PROTEIN 6.7 GM/DL (6.4-8.2)
[2017-08-17 11:35] LABS: BASOPHILS % (AUTO) 1 % (0-10); EOSINOPHILS # (AUTO) 0.1 10^3/uL (0.0-0.3); EOSINOPHILS % (AUTO) 3 % (0-10); LYMPHOCYTES # (AUTO) 1.2 X 10^3 (1.0-4.0); LYMPHOCYTES % (AUTO) 28 % (12-44); MEAN CORPUSCULAR HEMOGLOBIN 32 PG (25-34); MEAN CORPUSCULAR HGB CONC 36 G/DL (32-36); MEAN CORPUSCULAR VOLUME 88 FL (80-99); MEAN PLATELET VOLUME 8.6 FL (7.4-10.4); MONOCYTES # (AUTO) 0.5 X 10^3 (0.0-1.0); MONOCYTES % (AUTO) 11 % (0-12); NEUTROPHILS # (AUTO) 2.6 X 10^3 (1.8-7.8); NEUTROPHILS % (AUTO) 58 % (42-75); PLATELET COUNT 191 10^3/uL (130-400); RED BLOOD COUNT 4.79 10^6/uL (4.35-5.85); RED CELL DISTRIBUTION WIDTH 12.1 % (10.0-14.5); WHITE BLOOD COUNT 4.4 10^3/uL (4.3-11.0)
[2017-08-17 11:55] LABS: ALANINE AMINOTRANSFERASE 13 U/L (0-55); ANION GAP 8 MMOL/L (5-14); ASPARTATE AMINO TRANSFERASE 14 U/L (5-34); BILIRUBIN,TOTAL 0.5 MG/DL (0.1-1.0); BLOOD UREA NITROGEN 18 MG/DL (7-18); BUN/CREATININE RATIO 18; CALCIUM 9.1 MG/DL (8.5-10.1); CARBON DIOXIDE 23 MMOL/L (21-32); CHLORIDE 105 MMOL/L (98-107); CREATININE SERUM 1.02 MG/DL (0.60-1.30); GFR ESTIMATED > 60; GLUCOSE 85 MG/DL (70-105); SODIUM 136 MMOL/L (135-145); TOTAL PROTEIN 7.8 GM/DL (6.4-8.2)
[2017-08-24 12:28] LABS: BASOPHILS % (AUTO) 0 % (0-10); EOSINOPHILS # (AUTO) 0.1 10^3/uL (0.0-0.3); EOSINOPHILS % (AUTO) 2 % (0-10); LYMPHOCYTES # (AUTO) 0.8 X 10^3 (1.0-4.0); LYMPHOCYTES % (AUTO) 18 % (12-44); MEAN CORPUSCULAR HEMOGLOBIN 31 PG (25-34); MEAN CORPUSCULAR HGB CONC 35 G/DL (32-36); MEAN CORPUSCULAR VOLUME 88 FL (80-99); MONOCYTES # (AUTO) 0.5 X 10^3 (0.0-1.0); MONOCYTES % (AUTO) 11 % (0-12); NEUTROPHILS # (AUTO) 3.2 X 10^3 (1.8-7.8); NEUTROPHILS % (AUTO) 69 % (42-75); PLATELET COUNT 175 10^3/uL (130-400); RED BLOOD COUNT 4.38 10^6/uL (4.35-5.85); RED CELL DISTRIBUTION WIDTH 11.4 % (10.0-14.5); WHITE BLOOD COUNT 4.6 10^3/uL (4.3-11.0)
[2017-08-24 12:43] LABS: ANION GAP 9 MMOL/L (5-14); BLOOD UREA NITROGEN 17 MG/DL (7-18); BUN/CREATININE RATIO 18; CALCIUM 8.8 MG/DL (8.5-10.1); CARBON DIOXIDE 23 MMOL/L (21-32); CHLORIDE 106 MMOL/L (98-107); CREATININE SERUM 0.94 MG/DL (0.60-1.30); GFR ESTIMATED > 60; GLUCOSE 115 MG/DL (70-105); POTASSIUM 3.7 MMOL/L (3.6-5.0); SODIUM 138 MMOL/L (135-145)
[~2017-08-28] VITALS: Ht 188 cm; Wt 88.0 kg
[~2017-08-28 13:55] MED LIST: CISPLATIN IV SCH; FAMOTIDINE 20MG/2ML IV (CANCER CTR) IV SCH; FOSAPREPITANT DIMEGLUMINE 150 MG in NS (IVPB) CANCER CENTER ONLY 150 ML IV SCH; MAGNESIUM SULFATE IV SCH; MANNITOL IV SCH; NS IV 1000 ML (CANCER CTR) IV SCH; PALONOSETRON 0.25 MG, DEXAMETHASONE 10 MG/NS 50 ML IVPB IV PRN; [UNRECOGNIZED DRUG - OTHER] IV SCH
== END 2017-08-28 14:37 | disposition home or self-care (01) ==
LOC: ONC 13:55
PROVIDERS: ATTEND Internal Medicine Hematology & Oncology
DX: Z51.0 Encounter for antineoplastic radiation therapy (principal); Z51.11 Encounter for antineoplastic chemotherapy; C01 Malignant neoplasm of base of tongue; C77.0 Secondary and unspecified malignant neoplasm of lymph nodes of head, face and neck; L21.9 Seborrheic dermatitis, unspecified; Z93.1 Gastrostomy status
CPT/HCPCS: 36415; 77300; 77301; 77334; 77336; 77338; 77386; 77470; 80048; 80053; 83735; 85025; 96367; 96375; 96413; 99214

== ENCOUNTER 2017-10-09 09:45 | Outpatient (RCR) | payer BC | END 2017-11-05 14:51 | disposition home or self-care (01) | LOC: ONC 09:45 | PROVIDERS: ATTEND Internal Medicine Hematology & Oncology | DX: C01 Malignant neoplasm of base of tongue (principal); C77.0 Secondary and unspecified malignant neoplasm of lymph nodes of head, face and neck; Z93.1 Gastrostomy status | CPT/HCPCS: 99213 ==

== ENCOUNTER → 2017-11-05 | Outpatient (CLI) | payer BC ==
[~2017-11-05] MED LIST changes: -CISPLATIN IV SCH; -FAMOTIDINE 20MG/2ML IV (CANCER CTR) IV SCH; -FOSAPREPITANT DIMEGLUMINE 150 MG in NS (IVPB) CANCER CENTER ONLY 150 ML IV SCH; +IOHEXOL 350 MG/ML 100 ML (OMNIPAQUE 350) VIAL IV ONE; -MAGNESIUM SULFATE IV SCH; -MANNITOL IV SCH; +NS 100 ML (IVPB) BAG IV ONE; -NS IV 1000 ML (CANCER CTR) IV SCH; -PALONOSETRON 0.25 MG, DEXAMETHASONE 10 MG/NS 50 ML IVPB IV PRN; -[UNRECOGNIZED DRUG - OTHER] IV SCH
--- NOTE | 2017-11-05 10:24 | Diagnostic Imaging Report ---
CLINICAL INDICATION: Patient with cancer of lymph nodes secondary to cancer base of tongue. Followup exam with no issues. EXAMS: Axial CT scan of the brain performed without and with 75 cc of Omnipaque [address] scan of the neck performed with contrast in conjunction with head CT. Coronal and sagittal reformatted images of the neck were created. COMPARISON: None. FINDINGS: HEAD CT: There is no evidence of acute cerebral infarct, intracranial hemorrhage, or gross mass effect. There is normal lu-white matter distinction. The brain parenchymal volume appears appropriate for patient's age. There is no significant midline shift or herniation. The [place] vascular structures show no gross abnormality as visualized. Visualized portion of the dural venous sinuses are grossly unremarkable. There is no evidence of hydrocephalus. The basal cisterns are unremarkable. The skull, extracranial soft tissue, and orbits are unremarkable. The paranasal sinuses are unremarkable. There is a moderate-sized air-fluid level in the left mastoid air cells. NECK CT SCAN: There is no gross evidence of neck mass, lymphadenopathy, or fluid collection. There is mild thickening of the epiglottis with no measurable mass seen which is nonspecific. There is mild thickening of the left lateral hypopharyngeal soft tissue seen on series 4, image 64 causing slight asymmetry of the soft tissue. There is no measurable mass seen. Otherwise, the nasopharynx, oropharynx, hypopharynx, laryngeal and hypopharyngeal soft tissue structures show no other significant abnormality. The bilateral salivary glands and thyroid glands are unremarkable. Malaligned mandibular right second premolar tooth is noted which is angulated medially. There is dental streak artifact which obscures portions of the oral cavity and tongue. Otherwise visualized portion of the oral cavity, tongue, sublingual region and submandibular region show no gross abnormality. There is bilateral apical pleural-parenchymal thickening, likely scarring seen. There is minimal mucosal thickening involving the right maxillary sinus. There is cervical spine degenerative disease with vertebral body spurs which is worse at the C5-C6 and C6-C7 levels. There is suggestion of diffuse disc bulges at the C5-C6 and C6-C7 levels. There is at least mild central canal narrowing at the C6-C7 level. IMPRESSION: 1: Unremarkable CT scan of the brain with no evidence of enhancing mass or metastatic disease. 2: There is mild thickening and asymmetry of the left lateral hypopharyngeal soft tissue with no measurable mass seen. Direct visualization would better evaluate to exclude an underlying mass versus soft tissue thickening. 3: There is no lymphadenopathy or other significant neck soft tissue abnormality. 4: There is moderate air-fluid level in the left mastoid air cells. Dictated by: Dictated on workstation # [id number]
== END ==
LOC: RAD 08:57
PROVIDERS: ATTEND Internal Medicine Hematology & Oncology
DX: C01 Malignant neoplasm of base of tongue (principal); C77.0 Secondary and unspecified malignant neoplasm of lymph nodes of head, face and neck
CPT/HCPCS: 70470; 70491

== ENCOUNTER → 2018-02-01 | Outpatient (CLI) | payer BC ==
[~2018-02-01] MED LIST changes: -NS 100 ML (IVPB) BAG IV ONE; +NS 250 ML (IVPB) BAG IV ONE
[2018-02-01 07:48] LABS: BASOPHILS % (AUTO) 1 % (0-10); EOSINOPHILS # (AUTO) 0.1 10^3/uL (0.0-0.3); EOSINOPHILS % (AUTO) 5 % (0-10); HEMATOCRIT 34 % (40-54); HEMOGLOBIN 11.9 G/DL (13.3-17.7); LYMPHOCYTES # (AUTO) 0.5 X 10^3 (1.0-4.0); LYMPHOCYTES % (AUTO) 19 % (12-44); MEAN CORPUSCULAR HEMOGLOBIN 32 PG (25-34); MEAN CORPUSCULAR HGB CONC 35 G/DL (32-36); MEAN CORPUSCULAR VOLUME 92 FL (80-99); MEAN PLATELET VOLUME 8.5 FL (7.4-10.4); MONOCYTES # (AUTO) 0.3 X 10^3 (0.0-1.0); MONOCYTES % (AUTO) 13 % (0-12); NEUTROPHILS # (AUTO) 1.5 X 10^3 (1.8-7.8); NEUTROPHILS % (AUTO) 63 % (42-75); PLATELET COUNT 110 10^3/uL (130-400); RED BLOOD COUNT 3.67 10^6/uL (4.35-5.85); WHITE BLOOD COUNT 2.4 10^3/uL (4.3-11.0)
[2018-02-01 08:12] LABS: ALANINE AMINOTRANSFERASE 11 U/L (0-55); ALKALINE PHOSPHATASE 62 U/L (40-136); BILIRUBIN,TOTAL 0.7 MG/DL (0.1-1.0); BUN/CREATININE RATIO 19; CALCIUM 9.3 MG/DL (8.5-10.1); CARBON DIOXIDE 28 MMOL/L (21-32); CHLORIDE 107 MMOL/L (98-107); CREATININE SERUM 0.85 MG/DL (0.60-1.30); GFR ESTIMATED > 60; GLUCOSE 96 MG/DL (70-105); SODIUM 140 MMOL/L (135-145)
--- NOTE | 2018-02-01 08:55 | Diagnostic Imaging Report ---
PROCEDURE: CT head with and without contrast. TECHNIQUE: Multiple contiguous axial images were obtained through the brain before and after the administration of intravenous contrast. INDICATION: Head and neck cancer with chemotherapy treatment. Comparison is made study of 11/05/2017. EXAMINATION: Multiple contiguous axial CT images of the head were obtained prior to and after intravenous administration of contrast. FINDINGS: Ventricles and sulci are within normal limits. There is no intracranial hemorrhage or abnormal mass effect. No abnormal focus of contrast enhancement is identified. IMPRESSION: Unremarkable CT of the head without and with intravenous contrast. Dictated by: Dictated on workstation # [id number]
--- NOTE | 2018-02-01 09:21 | Diagnostic Imaging Report ---
INDICATION: Tongue carcinoma. TECHNIQUE: Axial imaging through the neck and chest was performed after the administration of intravenous contrast. Sagittal and coronal reformations were also performed. COMPARISON: No prior studies are available for comparison. FINDINGS: CT NECK: The visualized intracranial structures are unremarkable. The posterior nasopharynx and oropharynx are unremarkable. The parapharyngeal fat planes are preserved. The epiglottis and larynx are unremarkable. No thyroid masses are seen. The submandibular and parotid glands are unremarkable bilaterally. No lymphadenopathy is seen. No fluid collections are identified. IMPRESSION: Unremarkable CT of the soft tissues of the neck. CT CHEST: No axillary lymphadenopathy is identified. Small lymph nodes are identified in the AP window. No pathologically enlarged nodes are identified. No hilar lymphadenopathy is detected. No pericardial or pleural fluid is identified. There is a tiny nodule identified in the right lung apex measuring 4 mm in size, indeterminate. A tiny nodule involving the major fissure on the left is seen, image 35, measuring 2 mm. A subpleural nodule in the superior segment of the left lower lobe is noted, image 34, measuring 3 mm. No other pulmonary nodules are identified. There is a tiny low-density in the dome of the right lobe of the liver measuring 4 mm. This is too small to accurately characterize but may represent a tiny cyst. IMPRESSION: No evidence of thoracic lymphadenopathy. There are several tiny nodules identified in both lungs, indeterminate. A followup CT chest in 4-6 months could be performed to confirm stability. No other significant abnormality is seen. Dictated by: Dictated on workstation # [id number]
== END ==
LOC: RAD 07:18
PROVIDERS: ATTEND Internal Medicine Hematology & Oncology
DX: C01 Malignant neoplasm of base of tongue (principal); C77.0 Secondary and unspecified malignant neoplasm of lymph nodes of head, face and neck; R91.8 Other nonspecific abnormal finding of lung field
CPT/HCPCS: 36415; 70470; 70491; 71260; 80053; 84443; 85025

== ENCOUNTER 2018-02-04 13:38 | Outpatient (RCR) | payer BC | END 2018-02-07 | disposition home or self-care (01) | LOC: ONC 13:38 | PROVIDERS: ATTEND Internal Medicine Hematology & Oncology | DX: C01 Malignant neoplasm of base of tongue (principal); C77.0 Secondary and unspecified malignant neoplasm of lymph nodes of head, face and neck | CPT/HCPCS: 99213 ==

== ENCOUNTER → 2018-05-06 | Outpatient (CLI) | payer BC ==
--- NOTE | 2018-05-06 12:08 | Diagnostic Imaging Report ---
PROCEDURE: CT head with and without contrast. TECHNIQUE: Multiple contiguous axial images were obtained through the brain before and after the administration of intravenous contrast. INDICATION: Tongue carcinoma. The previous CT head exam of 02/01/2018 failed to show any sign of an acute intracranial abnormality. There was no abnormal enhancement to suggest metastatic disease related to the patient's diagnosis of tongue carcinoma either. On this study, the overall appearance of the brain does not appear to have changed significantly since the prior exam. On the precontrast series, there is no mass, shift of midline or hemorrhage to suggest an acute abnormality. There is no abnormal enhancement on the postcontrast sequence to suggest a neoplastic or infectious process. The ventricles are stable in size. The bone windows show no evidence for fracture or for destructive lesion. The orbits are symmetrical and within normal limits. The sinuses are generally clear where visualized. IMPRESSION: 1. There is no evidence for an acute intracranial abnormality. There is no abnormal enhancement to suggest metastatic disease either. 2. If clinical concern regarding an underlying abnormality persists and further imaging is desired, then MRI would be recommended. Dictated by: Dictated on workstation # [id number]
--- NOTE | 2018-05-06 12:13 | Diagnostic Imaging Report ---
CT of the neck and chest with contrast. Indication: Tongue carcinoma. Contiguous axial sections were taken from the midportion of the skull to the lung apices following administration of intravenous contrast. Subsequent additional axial images were obtained through the thorax itself. Sagittal coronal reconstructed images were also performed. The previous CT neck and chest exam of 02/01/2018 failed to show any evidence of adenopathy related to the patient's diagnosis of tongue carcinoma. On this study there was still no mass or adenopathy involving the neck. The tongue, where visualized, seems similar in appearance to the prior exam. Much of the tongue is obscured by artifact related to the patient's dental fillings however. The submandibular glands and the parotid glands appear symmetrical. The thyroid gland is fairly homogeneous and not enlarged. The tracheal air shadow is not compressed or deviated. The images through the thorax failed to show any sign of supraclavicular, axillary, mediastinal or hilar adenopathy. The heart size is stable when compared to the prior study and within normal limits. Aorta is not abnormally dilated and there is no sign of dissection. There is no defect within the pulmonary arteries to indicate a pulmonary embolus either. The prior exam did note a 4 mm nodule in the right apex and a 2 mm nodule involving the major fissure on the left. Those findings are again evident on this study and do not appear to have changed significantly (images 9 of 73 and 33 of 73). There is a 3 mm nodule on the periphery of the left lower lobe and a 3 mm nodule in the left upper lobe seen previously are also again visualized and no different (images 32 of 73 and 14 of 73). There is no other parenchymal lung mass identified. There is no sign of failure, pneumonia or pleural effusion. The sections to the upper abdomen failed to show any evidence for an acute abnormality. The 4 mm cyst in the dome of the right lobe of the liver seen previously is again evident and no different. The bone windows show no sign of a fracture or of a destructive lesion. IMPRESSION: 1. The appearance of the neck and chest is stable when compared to the prior exam. There is no acute abnormality identified and no new mass or adenopathy has developed to suggest metastatic disease related to patient's diagnosis of carcinoma of the tongue. 2. The small pulmonary nodules seen previously are unchanged. These are most likely benign. A six-month followup CT chest exam would be recommended for continued evaluation however. Dictated by: Dictated on workstation # [id number]
== END ==
LOC: RAD 07:50
PROVIDERS: ATTEND Internal Medicine Hematology & Oncology
DX: C01 Malignant neoplasm of base of tongue (principal); C77.0 Secondary and unspecified malignant neoplasm of lymph nodes of head, face and neck; R91.8 Other nonspecific abnormal finding of lung field
CPT/HCPCS: 70470; 70491; 71260

== ENCOUNTER 2018-05-10 09:01 | Outpatient (RCR) | payer BC ==
[2018-05-10 09:15] LABS: BASOPHILS % (AUTO) 0 % (0-10); EOSINOPHILS # (AUTO) 0.1 10^3/uL (0.0-0.3); EOSINOPHILS % (AUTO) 3 % (0-10); HEMATOCRIT 38 % (40-54); HEMOGLOBIN 13.5 G/DL (13.3-17.7); LYMPHOCYTES # (AUTO) 0.6 X 10^3 (1.0-4.0); LYMPHOCYTES % (AUTO) 26 % (12-44); MEAN CORPUSCULAR HEMOGLOBIN 32 PG (25-34); MEAN CORPUSCULAR HGB CONC 35 G/DL (32-36); MEAN CORPUSCULAR VOLUME 90 FL (80-99); MEAN PLATELET VOLUME 8.4 FL (7.4-10.4); MONOCYTES # (AUTO) 0.3 X 10^3 (0.0-1.0); MONOCYTES % (AUTO) 13 % (0-12); NEUTROPHILS # (AUTO) 1.4 X 10^3 (1.8-7.8); NEUTROPHILS % (AUTO) 58 % (42-75); PLATELET COUNT 105 10^3/uL (130-400); RED BLOOD COUNT 4.27 10^6/uL (4.35-5.85); RED CELL DISTRIBUTION WIDTH 12.5 % (10.0-14.5); WHITE BLOOD COUNT 2.5 10^3/uL (4.3-11.0)
[2018-05-10 09:37] LABS: ALANINE AMINOTRANSFERASE 18 U/L (0-55); ALBUMIN 4.2 GM/DL (3.2-4.5); ALKALINE PHOSPHATASE 52 U/L (40-136); BILIRUBIN,TOTAL 0.7 MG/DL (0.1-1.0); BUN/CREATININE RATIO 15; CALCIUM 9.1 MG/DL (8.5-10.1); CARBON DIOXIDE 25 MMOL/L (21-32); CHLORIDE 108 MMOL/L (98-107); CREATININE SERUM 1.04 MG/DL (0.60-1.30); GFR ESTIMATED > 60; GLUCOSE 90 MG/DL (70-105); POTASSIUM 4.4 MMOL/L (3.6-5.0); SODIUM 140 MMOL/L (135-145)
== END 2018-08-08 | disposition home or self-care (01) ==
LOC: ONC 09:01
PROVIDERS: ATTEND Internal Medicine Hematology & Oncology
DX: C01 Malignant neoplasm of base of tongue (principal); C77.0 Secondary and unspecified malignant neoplasm of lymph nodes of head, face and neck; K11.7 Disturbances of salivary secretion; R91.8 Other nonspecific abnormal finding of lung field; Z92.21 Personal history of antineoplastic chemotherapy; Z92.3 Personal history of irradiation; Z79.899 Other long term (current) drug therapy
CPT/HCPCS: 36415; 80053; 84443; 85025; 99213

== ENCOUNTER 2018-08-09 08:51 | Outpatient (RCR) | payer BC ==
[2018-08-09 08:59] LABS: BASOPHILS % (AUTO) 0 % (0-10); EOSINOPHILS % (AUTO) 1 % (0-10); HEMATOCRIT 38 % (40-54); HEMOGLOBIN 13.9 G/DL (13.3-17.7); LYMPHOCYTES # (AUTO) 0.7 X 10^3 (1.0-4.0); LYMPHOCYTES % (AUTO) 24 % (12-44); MEAN CORPUSCULAR HEMOGLOBIN 32 PG (25-34); MEAN CORPUSCULAR HGB CONC 36 G/DL (32-36); MEAN CORPUSCULAR VOLUME 89 FL (80-99); MEAN PLATELET VOLUME 8.3 FL (7.4-10.4); MONOCYTES # (AUTO) 0.4 X 10^3 (0.0-1.0); MONOCYTES % (AUTO) 12 % (0-12); NEUTROPHILS # (AUTO) 1.9 X 10^3 (1.8-7.8); NEUTROPHILS % (AUTO) 63 % (42-75); PLATELET COUNT 115 10^3/uL (130-400); RED BLOOD COUNT 4.29 10^6/uL (4.35-5.85); RED CELL DISTRIBUTION WIDTH 12.3 % (10.0-14.5); WHITE BLOOD COUNT 2.9 10^3/uL (4.3-11.0)
[2018-08-09 09:26] LABS: ALANINE AMINOTRANSFERASE 11 U/L (0-55); ALBUMIN 4.2 GM/DL (3.2-4.5); ALKALINE PHOSPHATASE 54 U/L (40-136); BILIRUBIN,TOTAL 0.9 MG/DL (0.1-1.0); BUN/CREATININE RATIO 11; CALCIUM 9.4 MG/DL (8.5-10.1); CARBON DIOXIDE 27 MMOL/L (21-32); CHLORIDE 107 MMOL/L (98-107); CREATININE SERUM 1.08 MG/DL (0.60-1.30); GFR ESTIMATED > 60; GLUCOSE 105 MG/DL (70-105); SODIUM 139 MMOL/L (135-145); TOTAL PROTEIN 7.1 GM/DL (6.4-8.2)
== END 2018-08-29 | disposition home or self-care (01) ==
LOC: ONC 08:51
PROVIDERS: ATTEND Internal Medicine Hematology & Oncology
DX: C01 Malignant neoplasm of base of tongue (principal); C77.0 Secondary and unspecified malignant neoplasm of lymph nodes of head, face and neck; K11.7 Disturbances of salivary secretion; R91.8 Other nonspecific abnormal finding of lung field; Z92.21 Personal history of antineoplastic chemotherapy; Z92.3 Personal history of irradiation; Z79.899 Other long term (current) drug therapy
CPT/HCPCS: 36415; 80053; 84443; 85025; 99213

== ENCOUNTER → 2018-11-05 | Outpatient (CLI) | payer BC ==
[~2018-11-05] MED LIST changes: +CATHETER FLUSH 10 ML SYR IV PRN; +RECEIVED CONTRAST (Hold Metformin) IV SCH
--- NOTE | 2018-11-05 11:46 | Diagnostic Imaging Report ---
PROCEDURE: CT head with and without contrast. TECHNIQUE: Multiple contiguous axial images were obtained through the brain before and after the administration of intravenous contrast. INDICATION: Tongue carcinoma. COMPARISON: Correlation is made with prior CT from 05/06/2018. FINDINGS: The ventricles and sulci are within normal limits. No sulcal effacement, midline shift or hemorrhage is detected. Cisterns are patent. No enhancing lesion is detected. The visualized paranasal sinuses are clear. IMPRESSION: Stable unremarkable pre-and postcontrast MRI of the brain. Dictated by: Dictated on workstation # [id number]
--- NOTE | 2018-11-05 12:17 | Diagnostic Imaging Report ---
INDICATION: Tongue carcinoma. Study is performed for followup. Axial imaging through the neck and chest was performed after the administration of intravenous contrast. Comparison is made with prior CT from 05/06/2018. CT NECK: The visualized intracranial structures are unremarkable. The posterior nasopharynx and oropharynx are unremarkable. In particular, base of tongue appears to be stable. There is moderate streak artifact from dental hardware. Larynx are unremarkable. No thyroid mass is seen. Submandibular and parotid glands appear to be symmetric. No definite cervical lymphadenopathy is seen. No fluid collection is identified. IMPRESSION: Stable unremarkable CT soft tissue neck when compared with exam from 05/06/2018. CT CHEST: No axillary lymphadenopathy is identified. No mediastinal or hilar lymphadenopathy is detected. No pericardial or pleural fluid is identified. Tiny nodule right lung apex stable approximately 3-4 mm, image 10. A left apical nodule is also stable at approximately 4 mm, image 17. A tiny nodule along the left major fissure is stable, image 35. Small subpleural nodule superior segment left lower lobe is stable image 34. No new parenchymal mass is identified. The upper abdomen is unremarkable. IMPRESSION: Stable bilateral pulmonary micronodules when compared with study from 05/06/2018. No new mass or evidence of thoracic lymphadenopathy is detected. Dictated by: Dictated on workstation # [id number]
== END ==
LOC: RAD 10:35
PROVIDERS: ATTEND Internal Medicine Hematology & Oncology
DX: R91.8 Other nonspecific abnormal finding of lung field (principal); C01 Malignant neoplasm of base of tongue; C77.0 Secondary and unspecified malignant neoplasm of lymph nodes of head, face and neck
CPT/HCPCS: 70470; 70491; 71260

== ENCOUNTER 2018-11-11 08:42 | Outpatient (RCR) | payer BC ==
[2018-11-05 10:36] LABS: BASOPHILS % (AUTO) 1 % (0-10); EOSINOPHILS # (AUTO) 0.1 10^3/uL (0.0-0.3); EOSINOPHILS % (AUTO) 3 % (0-10); HEMATOCRIT 39 % (40-54); HEMOGLOBIN 13.8 G/DL (13.3-17.7); LYMPHOCYTES # (AUTO) 0.6 X 10^3 (1.0-4.0); LYMPHOCYTES % (AUTO) 16 % (12-44); MEAN CORPUSCULAR HEMOGLOBIN 33 PG (25-34); MEAN CORPUSCULAR HGB CONC 36 G/DL (32-36); MEAN CORPUSCULAR VOLUME 91 FL (80-99); MEAN PLATELET VOLUME 8.2 FL (7.4-10.4); MONOCYTES # (AUTO) 0.4 X 10^3 (0.0-1.0); MONOCYTES % (AUTO) 10 % (0-12); NEUTROPHILS # (AUTO) 2.6 X 10^3 (1.8-7.8); NEUTROPHILS % (AUTO) 70 % (42-75); PLATELET COUNT 104 10^3/uL (130-400); RED CELL DISTRIBUTION WIDTH 12.2 % (10.0-14.5); WHITE BLOOD COUNT 3.7 10^3/uL (4.3-11.0)
[2018-11-05 10:55] LABS: ALANINE AMINOTRANSFERASE 15 U/L (0-55); ALBUMIN 4.1 GM/DL (3.2-4.5); ALKALINE PHOSPHATASE 61 U/L (40-136); BILIRUBIN,TOTAL 0.6 MG/DL (0.1-1.0); BUN/CREATININE RATIO 16; CARBON DIOXIDE 25 MMOL/L (21-32); CHLORIDE 106 MMOL/L (98-107); CREATININE SERUM 1.11 MG/DL (0.60-1.30); GFR ESTIMATED > 60; GLUCOSE 109 MG/DL (70-105); POTASSIUM 4.3 MMOL/L (3.6-5.0); SODIUM 139 MMOL/L (135-145); TOTAL PROTEIN 6.9 GM/DL (6.4-8.2)
== END 2019-02-03 | disposition home or self-care (01) ==
LOC: ONC 08:42
PROVIDERS: ATTEND Internal Medicine Hematology & Oncology
DX: C01 Malignant neoplasm of base of tongue (principal); C77.0 Secondary and unspecified malignant neoplasm of lymph nodes of head, face and neck; K11.7 Disturbances of salivary secretion; R91.8 Other nonspecific abnormal finding of lung field; Z92.21 Personal history of antineoplastic chemotherapy; Z92.3 Personal history of irradiation; Z79.899 Other long term (current) drug therapy
CPT/HCPCS: 36415; 80053; 84443; 85025; 99213

== ENCOUNTER 2019-05-11 14:54 | Outpatient (RCR) | payer BC ==
[2019-02-16 15:28] LABS: BASOPHILS % (AUTO) 1 % (0-10); EOSINOPHILS # (AUTO) 0.1 10^3/uL (0.0-0.3); EOSINOPHILS % (AUTO) 4 % (0-10); HEMATOCRIT 37 % (40-54); HEMOGLOBIN 13.3 G/DL (13.3-17.7); LYMPHOCYTES # (AUTO) 0.7 X 10^3 (1.0-4.0); LYMPHOCYTES % (AUTO) 34 % (12-44); MEAN CORPUSCULAR HEMOGLOBIN 32 PG (25-34); MEAN CORPUSCULAR HGB CONC 36 G/DL (32-36); MEAN CORPUSCULAR VOLUME 89 FL (80-99); MEAN PLATELET VOLUME 8.4 FL (7.4-10.4); MONOCYTES # (AUTO) 0.4 X 10^3 (0.0-1.0); MONOCYTES % (AUTO) 20 % (0-12); NEUTROPHILS # (AUTO) 0.8 X 10^3 (1.8-7.8); NEUTROPHILS % (AUTO) 41 % (42-75); PLATELET COUNT 114 10^3/uL (130-400)
[2019-02-16 15:57] LABS: ALANINE AMINOTRANSFERASE 18 U/L (0-55); ALKALINE PHOSPHATASE 55 U/L (40-136); BILIRUBIN,TOTAL 0.4 MG/DL (0.1-1.0); BUN/CREATININE RATIO 20; CALCIUM 8.9 MG/DL (8.5-10.1); CARBON DIOXIDE 25 MMOL/L (21-32); CHLORIDE 107 MMOL/L (98-107); CREATININE SERUM 1.05 MG/DL (0.60-1.30); GFR ESTIMATED > 60; GLUCOSE 97 MG/DL (70-105); POTASSIUM 4.5 MMOL/L (3.6-5.0); SODIUM 138 MMOL/L (135-145); TOTAL PROTEIN 6.8 GM/DL (6.4-8.2)
== END 2019-05-17 | disposition home or self-care (01) ==
LOC: ONC 14:54
PROVIDERS: ATTEND Internal Medicine Hematology & Oncology
DX: C01 Malignant neoplasm of base of tongue (principal); C77.0 Secondary and unspecified malignant neoplasm of lymph nodes of head, face and neck; K11.7 Disturbances of salivary secretion; R91.8 Other nonspecific abnormal finding of lung field; Z79.899 Other long term (current) drug therapy; Z92.21 Personal history of antineoplastic chemotherapy; Z92.3 Personal history of irradiation
CPT/HCPCS: 36415; 80053; 84443; 85025; 99213

== ENCOUNTER 2019-08-23 14:52 | Outpatient (RCR) | payer BC | END 2019-11-21 | disposition home or self-care (01) | LOC: ONC 14:52 | PROVIDERS: ATTEND Internal Medicine Hematology & Oncology | DX: C01 Malignant neoplasm of base of tongue (principal); C77.0 Secondary and unspecified malignant neoplasm of lymph nodes of head, face and neck; K11.7 Disturbances of salivary secretion; R91.8 Other nonspecific abnormal finding of lung field; Z79.899 Other long term (current) drug therapy; Z92.21 Personal history of antineoplastic chemotherapy; Z92.3 Personal history of irradiation | CPT/HCPCS: 99213 ==

== ENCOUNTER → 2020-04-03 | Outpatient (CLI) | payer BC ==
[2020-04-03 15:04] LABS: BASOPHILS % (AUTO) 1 % (0-10); EOSINOPHILS # (AUTO) 0.1 10^3/uL (0.0-0.3); EOSINOPHILS % (AUTO) 3 % (0-10); HEMATOCRIT 39 % (40-54); LYMPHOCYTES % (AUTO) 24 % (12-44); MEAN CORPUSCULAR HEMOGLOBIN 32 PG (25-34); MEAN CORPUSCULAR HGB CONC 36 G/DL (32-36); MEAN CORPUSCULAR VOLUME 89 FL (80-99); MEAN PLATELET VOLUME 8.5 FL (7.4-10.4); MONOCYTES # (AUTO) 0.4 X 10^3 (0.0-1.0); MONOCYTES % (AUTO) 10 % (0-12); NEUTROPHILS # (AUTO) 2.5 X 10^3 (1.8-7.8); NEUTROPHILS % (AUTO) 62 % (42-75); PLATELET COUNT 136 10^3/uL (130-400); RED CELL DISTRIBUTION WIDTH 12.3 % (10.0-14.5); WHITE BLOOD COUNT 3.9 10^3/uL (4.3-11.0)
[2020-04-03 15:36] LABS: ALANINE AMINOTRANSFERASE 15 U/L (0-55); ALKALINE PHOSPHATASE 53 U/L (40-136); BILIRUBIN,TOTAL 0.5 MG/DL (0.1-1.0); BUN/CREATININE RATIO 18; CALCIUM 8.7 MG/DL (8.5-10.1); CARBON DIOXIDE 21 MMOL/L (21-32); CHLORIDE 107 MMOL/L (98-107); CREATININE SERUM 1.08 MG/DL (0.60-1.30); GFR ESTIMATED > 60; GLUCOSE 85 MG/DL (70-105); POTASSIUM 4.1 MMOL/L (3.6-5.0); SODIUM 138 MMOL/L (135-145)
== END ==
LOC: EDSTATUS 11-22 14:35 → ONC 14:52
PROVIDERS: ATTEND Internal Medicine Hematology & Oncology
DX: C01 Malignant neoplasm of base of tongue (principal); C77.0 Secondary and unspecified malignant neoplasm of lymph nodes of head, face and neck; Z79.899 Other long term (current) drug therapy; Z92.21 Personal history of antineoplastic chemotherapy; Z92.3 Personal history of irradiation
CPT/HCPCS: 80053; 84443; 85025; 99213

== ENCOUNTER → 2020-11-26 | Outpatient (CLI) | payer BC ==
[2020-11-26 10:53] LABS: BASOPHILS % (AUTO) 1 % (0-10); EOSINOPHILS # (AUTO) 0.1 10^3/uL (0.0-0.3); EOSINOPHILS % (AUTO) 3 % (0-10); HEMATOCRIT 42 % (40-54); HEMOGLOBIN 14.5 g/dL (13.3-17.7); LYMPHOCYTES # (AUTO) 0.9 10^3/uL (1.0-4.0); LYMPHOCYTES % (AUTO) 20 % (12-44); MEAN CORPUSCULAR HEMOGLOBIN 32 pg (25-34); MEAN CORPUSCULAR HGB CONC 35 g/dL (32-36); MEAN CORPUSCULAR VOLUME 91 fL (80-99); MEAN PLATELET VOLUME 8.6 fL (9.0-12.2); MONOCYTES # (AUTO) 0.5 10^3/uL (0.0-1.0); MONOCYTES % (AUTO) 11 % (0-12); NEUTROPHILS # (AUTO) 2.9 10^3/uL (1.8-7.8); NEUTROPHILS % (AUTO) 65 % (42-75); PLATELET COUNT 121 10^3/uL (130-400); WHITE BLOOD COUNT 4.5 10^3/uL (4.3-11.0)
[2020-11-26 11:14] LABS: ALANINE AMINOTRANSFERASE 18 U/L (0-55); ALBUMIN 4.2 GM/DL (3.2-4.5); ALKALINE PHOSPHATASE 61 U/L (40-136); BILIRUBIN,TOTAL 0.5 MG/DL (0.1-1.0); BUN/CREATININE RATIO 19; CALCIUM 8.8 MG/DL (8.5-10.1); CARBON DIOXIDE 27 MMOL/L (21-32); CHLORIDE 107 MMOL/L (98-107); GFR ESTIMATED > 60; GLUCOSE 101 MG/DL (70-105); POTASSIUM 4.2 MMOL/L (3.6-5.0); SODIUM 137 MMOL/L (135-145); TOTAL PROTEIN 7.2 GM/DL (6.4-8.2)
== END ==
LOC: ONC 10:26
PROVIDERS: ATTEND Internal Medicine Hematology & Oncology
DX: C01 Malignant neoplasm of base of tongue (principal); C77.0 Secondary and unspecified malignant neoplasm of lymph nodes of head, face and neck; E03.9 Hypothyroidism, unspecified
CPT/HCPCS: 80053; 84443; 85025; G0463; 99213

== ENCOUNTER → 2021-09-02 | Outpatient (CLI) | payer BC, OTHER ==
[2021-09-02 09:46] LABS: BASOPHILS % (AUTO) 1 % (0-10); EOSINOPHILS # (AUTO) 0.3 10^3/uL (0.0-0.3); EOSINOPHILS % (AUTO) 9 % (0-10); HEMATOCRIT 43 % (40-54); HEMOGLOBIN 14.9 g/dL (13.3-17.7); LYMPHOCYTES % (AUTO) 27 % (12-44); MEAN CORPUSCULAR HEMOGLOBIN 33 pg (25-34); MEAN CORPUSCULAR HGB CONC 35 g/dL (32-36); MEAN CORPUSCULAR VOLUME 94 fL (80-99); MEAN PLATELET VOLUME 8.4 fL (9.0-12.2); MONOCYTES # (AUTO) 0.4 10^3/uL (0.0-1.0); MONOCYTES % (AUTO) 11 % (0-12); NEUTROPHILS # (AUTO) 1.9 10^3/uL (1.8-7.8); NEUTROPHILS % (AUTO) 51 % (42-75); PLATELET COUNT 147 10^3/uL (130-400); WHITE BLOOD COUNT 3.8 10^3/uL (4.3-11.0)
[2021-09-02 10:29] LABS: ALBUMIN 3.9 GM/DL (3.2-4.5); BILIRUBIN,TOTAL 0.7 MG/DL (0.1-1.0); CREATININE SERUM 0.92 MG/DL (0.60-1.30); TOTAL PROTEIN 6.8 GM/DL (6.4-8.2)
== END ==
LOC: ONC 09:33
PROVIDERS: ATTEND Internal Medicine Hematology & Oncology
DX: C01 Malignant neoplasm of base of tongue (principal); C77.0 Secondary and unspecified malignant neoplasm of lymph nodes of head, face and neck; K11.7 Disturbances of salivary secretion; E89.0 Postprocedural hypothyroidism
CPT/HCPCS: 80053; 84443; 85025; 99213

== ENCOUNTER → 2021-10-16 | Outpatient (CLI) | payer OTHER | LOC: ONC 09:09 | PROVIDERS: ATTEND Internal Medicine Hematology & Oncology | DX: C01 Malignant neoplasm of base of tongue (principal); C77.0 Secondary and unspecified malignant neoplasm of lymph nodes of head, face and neck; E03.9 Hypothyroidism, unspecified; K21.9 Gastro-esophageal reflux disease without esophagitis; Z92.3 Personal history of irradiation; Z92.21 Personal history of antineoplastic chemotherapy | CPT/HCPCS: 84443 ==